=== PATIENT | female | born 1955 | race Caucasian/White ===

== ENCOUNTER 2021-01-14 12:19 | Emergency (ER) | payer OTHER, MEDICARE, SELFPAY ==
--- NOTE | ~2021-01-14 | CT_ITS ---
EXAMINATION: CT cervical spine wo con DATE: 01/14/2021 14:16 INDICATION: Neck pain post fall with head injury. TECHNIQUE: Computed tomography (CT) of the cervical spine was performed without intravenous contrast. Automated exposure control and iterative reconstruction technique were employed. The dose-length pro duct was 426.47 mGy-cm. COMPARISON: None FINDINGS: Straightening of the normal cervical lordosis. 1-2 mm retrolisthesis C4 on C5. Vertebral body heights are normal. No fracture. Severe disc height loss at C4-C5. Moderate disc height loss at C5-C6. Mild disc height loss at C2-C3 and C3-C4. Visualized cervical soft tissues and upper lungs are unremarkabl e. The following disc levels are specifically discussed: C2-C3: The disc does not extend beyond the endplate margin. There is mild left and moderate right unc overtebral joint osteoarthritis. There is no facet joint osteoarthritis. There is no neural foraminal stenosis. There is no central canal stenosis. C3-C4: Disc is mildly bulging. There is mild right and moderate left uncovertebral joint osteoarthrit is. There is mild right and moderate left facet joint osteoarthritis. There is no neural foraminal st enosis. There is no central canal stenosis. C4-C5: Posterior disc osteophyte complex is present. There is moderate left and severe right uncovert ebral joint osteoarthritis. There is mild bilateral facet joint osteoarthritis. There is mild left an d moderate right neural foraminal stenosis. There is mild central canal stenosis. C5-C6: Disc is bulging. There is severe right and moderate to severe left uncovertebral joint osteoar thritis. There is mild bilateral facet joint osteoarthritis. There is mild bilateral neural foraminal stenosis. There is mild central canal stenosis. C6-C7: The disc does not extend beyond the endplate margin. There is no uncovertebral joint osteoarth ritis. There is mild bilateral facet joint osteoarthritis. There is no neural foraminal stenosis. The re is no central canal stenosis. C7-T1: The disc does not extend beyond the endplate margin. There is no uncovertebral joint osteoarth ritis. There is mild to moderate left and severe right facet joint osteoarthritis. There is no neural foraminal stenosis. There is no central canal stenosis. IMPRESSION: 1. Moderate cervical spondylosis. No acute osseous abnormality. Reviewed, dictated and finalized at location [facility].
--- NOTE | ~2021-01-14 | CT_ITS ---
EXAMINATION: CT brain wo con DATE: 01/14/2021 14:17 INDICATION: A metal trellis fell on patient's head. Posterior head laceration. TECHNIQUE: Computed tomography (CT) of the head was performed without intravenous contrast. The mA wa s adjusted according to patient size. Iterative reconstruction technique was employed. Exam dose: 52 9.67 mGy-cm total exam DLP. COMPARISON: None FINDINGS: No intracranial mass lesion or hemorrhage or cerebrovascular accident is evident. No midlin e shift or mass effect. No subdural or epidural hematoma. Normal ventricular size. No skull fracture or significant abnormal bone destruction. Included paranasal sinuses and mastoid ai r cells are normally aerated. IMPRESSION: Negative Reviewed, dictated and finalized at [facility]. Reviewed, dictated and finalized at [facility]. IMPRESSION: Negative
[2021-01-14 12:25] VITALS: BP 143/110; PULSE 66; RESP 18; TEMP 35.8; O2SAT 98
--- NOTE | 2021-01-14 14:07 | ED.GENADULT ---
HPI - General Adult General Chief complaint: Head Injury <Abdirizak Patricia PA-C - Last Filed: 01/14/21 15:30> Stated complaint: head injury <Abdirizak Patricia PA-C - Last Filed: 01/14/21 15:30> Time Seen by Provider: 01/14/21 14:01 <Abdirizak Patricia PA-C - Last Filed: 01/14/21 15:30> Source: patient <Abdirizak Patricia PA-C - Last Filed: 01/14/21 15:30> Mode of arrival: ambulatory <Abdirizak Patricia PA-C - Last Filed: 01/14/21 15:30> Limitations: no limitations <Abdirizak Patricia PA-C - Last Filed: 01/14/21 15:30> History of Present Illness HPI narrative: Patient is 65-year-old female who presents to emergency department for evaluation of head injury and scalp laceration that occurred just prior to arrival patient was standing when she had a piece of metal scaffolding striking the posterior head denies loss of consciousness but notes that she does have severe headache lightheadedness dizziness. Patient notes his symptoms are worse with lifting the head up notes mild neck discomfort denies other pain or injuries or anticoagulant use. Patient has not taken anything for symptom <Abdirizak Patricia PA-C - Last Filed: 01/14/21 15:30> Related Data Allergies/adverse reactions: Allergies Allergy/AdvReac Type Severity Reaction Status Date / Time Penicillins Allergy Unknown Verified 01/14/21 12:28 <Abdirizak Patricia PA-C - Last Filed: 01/14/21 15:30> Review of Systems Review of Systems: All systems reviewed & are unremarkable except as noted in HPI and below <Abdirizak Patricia PA-C - Last Filed: 01/14/21 15:30> PMFSH Social History Social History: Social History Gender identity (if verbalized by the patient): Female <Abdirizak Patricia PA-C - Last Filed: 01/14/21 15:30> Exam Narrative: Exam Narrative: GENERAL: Well-appearing, well-nourished, and in no acute distress. HEAD: Normocephalic, 1 cm superficial linear posterior scalp laceration EYES: PERRLA and EOMI. ENT: Nares clear, no rhinorrhea or epistaxis. Mucous membranes moist. NECK: Supple. No adenopathy or masses. CHEST: Clear to auscultation. No respiratory distress. No wheezes rales or rhonchi HEART: Regular rate and rhythm. No murmur heard. EXTREMITIES: Normal range of motion. No edema. Paraspinal cervical tenderness no midline thoracic or lumbar tenderness SKIN: Warm, dry, no rash. NEURO: No focal deficits. Alert and oriented x3. Cranial nerves II through XII grossly intact. Normal speech and gait PSYCH: Normal mood and affect. <Abdirizak Patricia PA-C - Last Filed: 01/14/21 15:30> Course Vital Signs Vital signs: Vital Signs Temperature 96.4 F L 01/14/21 12:25 Pulse Rate 66 01/14/21 12:25 Respiratory Rate 18 01/14/21 12:25 Blood Pressure 143/110 H 01/14/21 12:25 Pulse Oximetry 98 01/14/21 12:25 Temperature 96.4 F L 01/14/21 12:25 Pulse Rate 58 L 01/14/21 15:47 Respiratory Rate 12 01/14/21 15:47 Blood Pressure 146/80 H 01/14/21 15:47 Pulse Oximetry 99 01/14/21 15:47 <Abdirizak Patricia PA-C - Last Filed: 01/14/21 15:30> Vital Signs Temperature 96.4 F L 01/14/21 12:25 Pulse Rate 66 01/14/21 12:25 Respiratory Rate 18 01/14/21 12:25 Blood Pressure 143/110 H 01/14/21 12:25 Pulse Oximetry 98 01/14/21 12:25 Temperature 96.4 F L 01/14/21 12:25 Pulse Rate 58 L 01/14/21 15:47 Respiratory Rate 12 01/14/21 15:47 Blood Pressure 146/80 H 01/14/21 15:47 Pulse Oximetry 99 01/14/21 15:47 <Chantal Magana MD - Last Filed: 01/14/21 18:16> Procedures Laceration Laceration 1: Date: 01/14/21 <MAGALY Berman Last Filed: 01/14/21 15:30> Time: 15:29 <MAGALY Berman Last Filed: 01/14/21 15:30> Site: scalp <MAGALY Berman Last Filed: 01/14/21 15:30> Size (cm): 1.5 <MAGALY Berman F
[2021-01-14] MEDS: ACETAMINOPHEN 325 MG TABLET 650 MG PO (14:55)
[2021-01-14] MEDS: LIDOCAINE, EPINEPHRINE, TETRACAINE VISCOUS SOLN 3 ML TOPICAL (14:55)
[2021-01-14] MEDS: TETANUS,DIPHTHERIA,AC PERTUSSIS ADULT (0.5 ML) BOOSTRIX IM (15:40)
[2021-01-14 15:47] VITALS: BP 146/80; PULSE 58; RESP 12; O2SAT 99
== END 2021-01-14 15:50 | disposition home or self-care (01) ==
PROVIDERS: Emergency Provider General Practice; PCP Family Medicine
DX: S01.01XA Laceration without foreign body of scalp, initial encounter (principal); Z23 Encounter for immunization; W20.8XXA Other cause of strike by thrown, projected or falling object, initial encounter
CPT/HCPCS: 12001; 70450; 72125; 90471; 90715; 99284; A9270

== ENCOUNTER 2022-08-28 11:05 | Emergency (ER) | payer OTHER, MEDICARE, SELFPAY ==
[2022-08-28 11:30] VITALS: BP 131/79; PULSE 67; RESP 18; TEMP 36.7; O2SAT 98
--- NOTE | 2022-08-28 11:55 | ED.URI ---
HPI - URI/Sore Throat General Chief Complaint: Upper Respiratory Infection Stated Complaint: . Time Seen by Provider: 08/28/22 11:55 Source: patient, RN notes reviewed and old records reviewed Mode of arrival: ambulatory Limitations: no limitations History of Present Illness HPI Narrative: 67-year-old female presents to the [facility] with complaints of cough and runny nose The since Thursday, 3 days. has taken NyQuil at night. denies fevers, chest pain, abdominal pain. MD elicited complaint: cough and rhinorrhea Related Data Home Medications Medication Instructions Recorded Confirmed No Home Medications 08/28/22 08/28/22 Allergies Allergy/AdvReac Type Severity Reaction Status Date / Time Penicillins Allergy Swelling Verified 08/28/22 11:46 Review of Systems Review of Systems: All systems reviewed & are unremarkable except as noted in HPI and below Constitutional: Constitutional: Reports no additional constitutional complaints, Denies chills and Denies fever(s) Eyes: Eyes: Reports no additional eye complaints ENT: Reports as per HPI, Reports nasal congestion, Reports nasal discharge and Reports post nasal drip Cardiovascular: Cardiovascular: Reports no additional cardiovascular complaints Respiratory: Respiratory: Reports no additional respiratory complaints Gastrointestinal: Gastrointestinal: Reports no additional gastrointestinal complaints Musculoskeletal: Musculoskeletal: Reports no additional musculoskeletal complaints Integumentary/Breasts: Skin/Breast: Reports system reviewed and no additional complaints, except as docu Neurologic: Reports system reviewed and no additional complaints, except as documented Psychiatric: Psychiatric: Reports no additional psychiatric complaints Allergic/Immunologic: Allergic/Immunologic: Reports no additional allergic/immunologic complaints PMFSH Social History Social History Gender identity (if verbalized by the patient): Female Comments At the time of my signature, I reviewed and agree with the nursing past medical, surgical, social, and family history. There is no relevant family history pertinent to the patient complaint. Exam Const: General: healthy appearing, no acute distress, alert and well nourished Nutritional Appearance: well nourished Orientation/consciousness: patient oriented x3 Limitations: no limitations HENMT: Head: normal to inspection Ears: external ears normal and TM abnormal bulging bilateral, with fluid behind the TM bilateral and scarred on the right; not erythematous, with no loss of landmarks, not perforated and not retracted Face/Nose/Sinus: Normal external nose present and Nasal discharge present clear bilateral Mouth: Yes Normal oral and palatal mucosa present, Yes lip normal and Yes moist mucous membranes Throat: posterior oropharynx normal, uvula midline and postnasal drainage Eyes: General: appearance normal, both eyes and all related structures Conjunctivae: conjunctivae normal Pupils: Equal, round and reactive pupils present Neck: Neck: normal visual inspection, no lymphadenopathy and no meningeal signs Chest: Chest palpation & inspection: normal inspection of the chest Resp: Effort & Inspection: normal respiratory effort and no use of accessory muscles Auscultation: clear to auscultation bilaterally, no crackles, no rales, no rhonchi and no wheezes Cardio: Rate: regular rate Rhythm: regular rhythm Skin: General skin exam: normal color Rashes: no rashes Wounds: no wounds Neuro: General: patient oriented x3, moves all extremities, no meningeal signs and no focal motor deficits Cranial nerves: Yes Equal, round and reactive pupils present Speech: normal speech Gait exam (Neuro): Normal gait present Extrem: General: normal to inspection, full ROM and capillary refill normal Psych: Appearance: grossly normal and well kempt Mental Status: mental status jana
== END 2022-08-28 12:12 | disposition home or self-care (01) ==
PROVIDERS: Emergency Provider Nurse Practitioner
DX: J06.9 Acute upper respiratory infection, unspecified (principal); H65.03 Acute serous otitis media, bilateral; Z20.822 Contact with and (suspected) exposure to COVID-19
CPT/HCPCS: 87081; 87426; 87804; 87880; 99213; C9803; G0463

== ENCOUNTER 2023-04-22 03:51 | Emergency (ER) | payer OTHER, MEDICARE, SELFPAY ==
[2023-04-22] VITALS (27 sets, daily range): BP systolic 128–152; BP diastolic 61–79; PULSE 58–76; RESP 12–19; TEMP 36.8; O2SAT 97–100
--- NOTE | ~2023-04-22 | CT_ITS ---
CT ANGIOGRAM NECK History: Neck pain. Technique: Serial spiral axial images through the neck were obtained during arterial phase IV injecti on of 100 cc of Omnipaque 350. 3-D postprocessing and MIP images were then reconstructed on the [employer] workstation. Dose reduction technique was used on this scan by utilizing automated exposure control and iterative reconstruction technique. The dose-length product (DLP) was 932.72 mGy-cm. CTA neck findings: Bilateral vertebral arteries are patent. Bilateral common carotid, internal carot id, and external carotid arteries are patent. No large vessel occlusion. No stenosis or aneurysm. The proximal right internal carotid artery demonstrates 0% stenosis relative to the normal distal artery lumen diameter. The proximal left internal carotid artery demonstrates 0% stenosis relative to the n ormal distal artery lumen diameter. No abnormal mass lesion or soft tissue abnormality evident in the neck. Thyroid gland unremarkable. P arapharyngeal fat preserved bilaterally. Parotid and submandibular glands are unremarkable. Impression: No significant abnormality seen. Reviewed, dictated and finalized at location . Impression: No significant abnormality seen.
--- NOTE | ~2023-04-22 | CT_ITS ---
Clinical Indication: Chest pain radiating to back CT Scan of the Chest and Abdomen with Contrast: Technique: Contiguous sections were acquired throughout the chest and abdomen after intravenous admin istration of 100 cc of Omnipaque 350. Dose reduction technique was used on this scan by utilizing au tomated exposure control and iterative reconstruction technique. The dose-length product (DLP) was 93 2.72 mGy-cm. Findings: There is no evidence of any significant mediastinal, hilar or axillary lymphadenopathy. The mediastin al soft tissues appear normal. No aortic aneurysm or dissection. No pulmonary embolus identified. There is no evidence of pleural or pericardial effusion. The lungs are clear. No pulmonary nodules or infiltrates are noted. The liver, spleen, pancreas, adrenals and kidneys are within normal limits. Cholecystectomy clips are present. No evidence of aortic aneurysm. No lymphadenopathy. Visualized bowel loops are unremarkable. No ascites. Impression: No significant abnormalities seen. No aortic aneurysm or dissection. Reviewed, dictated and finalized at [facility]. Impression: No significant abnormalities seen. No aortic aneurysm or dissection.
--- NOTE | 2023-04-22 03:58 | ECG_ITS ---
Measurements Intervals [place] Rate: 58 P: 61 ND: 152 QRS: 47 QRSD: 89 T: 50 QT: 437 QTc: 433 Interpretive Statements SINUS BRADYCARDIA POSSIBLE LEFT ATRIAL ENLARGEMENT [-0.1mV P WAVE IN V1/V2] LOW QRS VOLTAGE IN PRECORDIAL LEADS [QRS DEFLECTION < 1.0 mV IN CHEST LEADS] ABNORMAL ECG NO PREVIOUS ECG AVAILABLE FOR COMPARISON Electronically Signed On 04-22-2023 11:58:07 CDT by Arsalan Barbosa M.D.
--- NOTE | 2023-04-22 04:31 | ED.CHESTPAIN ---
HPI - Chest Pain General Chief Complaint: Chest Pain Stated Complaint: chest pain Time Seen by Provider: 04/22/23 03:57 History of Present Illness HPI narrative: Patient had recently been started on doxycycline, she had taken a pill and had a feeling of it being stuck in her throat, she was able to drink water afterwards, she then started having severe pain in her epigastric abdomen that seem to go to her back. Much worse when she lays flat. No focal numbness or weakness or chest pain. No shortness of breath. Related Data Allergies Allergy/AdvReac Type Severity Reaction Status Date / Time Penicillins Allergy Swelling Verified 08/28/22 11:46 Review of Systems Review of Systems: CONST: No fever. HEENT: Globus sensation C/V: No chest pain RESP: No cough GI: Reports abdominal pain : No dysuria. M/S: No joint pain. SKIN: No rash. NEURO: [No headache or focal numbness or weakness] PSYCH: [No depression] [facility] Social History Social History Gender identity (if verbalized by the patient): Female Exam Narrative: EXAMINATION OF ORGAN SYSTEMS/BODY AREAS: Constitutional: Vital signs per nursing GENERAL: Appears somewhat uncomfortable, sitting bolt upright HEAD: Normal with no signs of head trauma. EYES: EOMI, conjunctiva normal ENT: Clear pharynx, normal voice, no trismus LUNGS: Nonlabored breathing. HEART: [Regular rate and rhythm], normal radial and DP pulses bilaterally ABD: [Soft], mildly tender to palpation epigastric abdomen EXT: Normal range of motion SKIN: [No rashes or lesions.] NEURO: [Alert and oriented x 3. No gross focal sensory or strength deficits.] PSYCH: Normal affect Course Vital Signs Vital signs: Vital Signs Pulse Rate 71 04/22/23 04:39 Respiratory Rate 16 04/22/23 04:39 Pulse Oximetry 100 04/22/23 04:39 Temperature 36.8 C 04/22/23 04:40 Pulse Rate 71 04/22/23 07:01 Respiratory Rate 19 04/22/23 07:01 Blood Pressure 138/73 04/22/23 07:01 Pulse Oximetry 99 04/22/23 06:45 Oxygen Delivery Room Air 04/22/23 04:40 MDM - Chest Pain MDM Narrative Medical decision making narrative: ED COURSE AND MEDICAL DECISION MAKIN-year-old female presenting with chest pain and sensation of something in her throat, she thinks it started after started taking doxycycline, worse with laying flat, seems to radiate to her back. I suspect possibly pill esophagitis, gastritis/GERD, also considered ACS, EKG done in triage negative for acute ischemic changes. Cardiac workup is initiated. EKG: Performed in triage and interpreted by me. Normal sinus rhythm. Rate 58. Normal axis. CA normal. QRS duration normal. QTc normal. No pathologic Q waves. No ST segment elevation or depression to suggest acute ischemia. No RV strain pattern. HEART score is 0 with no acute ischemic changes on EKG and negative troponin making ACS unlikely. Wells low risk with negative PERC making PE unlikely. Presentation not consistent with dissection or aneurysm without radiation of pain or pulse deficits. CXR negative for mediastinal widening. No abdominal pain or signs of sepsis that would be concerning for esophageal perforation or mediastinitis. No cardiomegaly or JVD to suggest pericardial effusion/tamponade. On reevaluation, patient states that she does not feel any better after the additional dose of Protonix and famotidine, and in fact feels like the pain is going up her left neck. Given this, I will obtain a CTA of the neck, chest, abdomen to rule out dissection. Per radiology interpretation, no signs of dissection or any obvious abnormality or foreign body. Since it has been less than 3 hours since her onset of symptoms, I will repeat troponins. Discussed with patient, she thinks that she may have an issue with the doxycycline as she had no symptoms prior to taking this, she would like an alternative to this, since she was taking it for a
[2023-04-22] MEDS: PANTOPRAZOLE SODIUM IV 40 MG VIAL IV PUSH (04:48)
[2023-04-22] MEDS: FAMOTIDINE 20 MG/2 ML VIAL IV PUSH (04:48)
[2023-04-22 04:56] LABS: Basophils Absolute Auto 0.1 K/mm3 (0.0-0.1); Basophils Percent Auto 0.7 % (0.2-1.2); Eosinophils Absolute Auto 0.1 K/mm3 (0-0.3); Eosinophils Percent Auto 0.9 % (0-4.4); Hematocrit 44.6 % (37.0-47.0); Hemoglobin 15.2 g/dL (12.0-15.0); Immature Granulocyte Absolute 0.02 K/mm3 (0.00-0.031); Immature Granulocyte Percent A 0.3 % (0-0.5); Immature Platelet Fraction Pct 2.2 % (0.9-11.2); Lymphocytes Absolute Auto 1.49 K/mm3 (0.9-3.2); Lymphocytes Percent Auto 20.1 % (18.3-44.2); Mean Corpuscular HGB Conc 34.1 g/dl (32-36); Mean Corpuscular Hemoglobin 31.5 pg (26-34); Mean Corpuscular Volume 92.3 fl (80-100); Mean Platelet Volume 9.3 fl (7.4-10.4); Monocytes Absolute Auto 0.6 K/mm3 (0.1-0.6); Monocytes Percent Auto 7.5 % (2.6-8.5); Neutrophils Absolute Auto 5.2 K/mm3 (1.3-6.7); Neutrophils Percent Auto 70.5 % (45.5-73.1); Platelet Count Result 261 k/mm3 (150-375); Red Blood Count 4.83 M/mm3 (4.2-5.4); Red Cell Distribution Width 12.7 % (11.5-14.5); White Blood Count 7.4 K/mm3 (4.5-10.0)
[2023-04-22 05:11] LABS: Alanine Aminotransferase 22 U/L (6-35); Albumin Level 4.4 g/dL (3.5-5.1); Alkaline Phosphatase 88 U/L (38-126); Anion Gap 5 mmol/L (8-16); Aspartate Amino Transferase 35 U/L (14-36); Bilirubin,Total 0.6 mg/dL (0.2-1.3); Blood Urea Nitrogen 23 mg/dL (7-17); Calcium 9.6 mg/dL (8.4-10.2); Carbon Dioxide 29 mmol/L (22-30); Chloride 103 mmol/L (98-107); Estimated CRCL calculation 49 ml/min; Estimated Glomerular Filt Rate > 60; Glucose 109 mg/dL (65-110); Lipase 63 U/L (23-300); Potassium 3.6 mmol/L (3.4-5.0); Sodium 137 mmol/L (137-145)
[2023-04-22 05:16] LABS: Troponin I < 0.012 ng/mL (0.000-0.034)
[2023-04-22] MEDS: MORPHINE SULFATE (*CRX) 4 MG/ML INJ IV PUSH (05:47)
[2023-04-22] MEDS: ONDANSETRON INJ 4 MG/2 ML VIAL IV PUSH (07:25)
[2023-04-22 07:50] LABS: Troponin I < 0.012 ng/mL (0.000-0.034)
== END 2023-04-22 08:36 | disposition home or self-care (01) ==
PROVIDERS: Emergency Medicine; Emergency Provider Emergency Medicine
DX: R07.9 Chest pain, unspecified (principal)
CPT/HCPCS: 36415; 70498; 71275; 74175; 80053; 83690; 84484; 85025; 85055; 93005; 96374; 96375; 99284; C9113; J2270; J2405; Q9967

== ENCOUNTER 2024-10-28 14:19 | Emergency (ER) | payer MEDICARE, OTHER, SELFPAY ==
--- NOTE | 2024-10-28 14:21 | ED_ITS ---
HPI - URI/Sore Throat General Chief Complaint: Upper Respiratory Infection Stated Complaint: possible URI Time Seen by Provider: 10/28/24 14:21 Source: patient Mode of arrival: ambulatory Limitations: no limitations History of Present Illness HPI Narrative: Bernie is a 69-year-old female patient presenting to the clinic today with complaints of nasal congestion, productive cough, and sneezing x5 days. Denies any fevers, chills, or body aches. Does report feeling as though she has slight tightness in her chest when she is walking the dog today. Denies any chest pain or shortness of breath currently. MD elicited complaint: cough and nasal congestion Related Data Allergies Allergy/AdvReac Type Severity Reaction Status Date / Time doxycycline Allergy Anaphylactic Verified 10/28/24 14:33 Shock Penicillins Allergy Swelling Verified 10/28/24 14:33 Review of Systems Review of Systems: Pertinent positives per HPI. Patient denies any fever, chills, rash, headache, visual changes, dizziness, shortness of breath, chest pain, palpitations, nausea, vomiting, diarrhea, constipation, abdominal pain, or any urinary issues. PMFSH Social History Social History Gender identity (if verbalized by the patient): Female Comments At the time of my signature, I reviewed and agree with the nursing past medical, surgical, social, and family history. There is no relevant family history pertinent to the patient complaint. Exam Narrative: General: Well-developed, well nourished, in no apparent distress Head: Normocephalic, atraumatic Eyes: Pupils equally round and reactive to light bilaterally, EOM intact, sclera and conjunctive clear, no discharge, lids normal Ears: TMs intact and clear, ear canals clear, no drainage, grossly hearing normal. Nose: Nares patent, clear nasal discharge, mild inflammation, no sinus tenderness. Mouth: Oral pharynx without lesions or masses, good dentition, MMM. Postnasal drip Neck: Supple, trachea midline, no enlargement of anterior or posterior cervical nodes, no thyroid masses or goiter palpable. Cardio: Regular rate and rhythm, s1 and s2 normal, no murmur appreciated. Resp: Clear to auscultation bilaterally, no rhonchi, rales, wheezing or rubs Course Course Emergency Course: Portions of this record may have been created with voice recognition software. Level of Care: Express Care Visit Vital Signs Vital signs: Vital Signs Temperature 36.3 C L 10/28/24 14:29 Pulse Rate 63 10/28/24 14:29 Respiratory Rate 16 10/28/24 14:29 Blood Pressure 142/65 H 10/28/24 14:29 Pulse Oximetry 98 10/28/24 14:29 Oxygen Delivery Room Air 10/28/24 14:29 Temperature 36.3 C L 10/28/24 14:29 Pulse Rate 63 10/28/24 14:29 Respiratory Rate 16 10/28/24 14:29 Blood Pressure 142/65 H 10/28/24 14:29 Pulse Oximetry 98 10/28/24 14:29 Oxygen Delivery Room Air 10/28/24 14:29 Vital signs reviewed MDM - URI/Sore Throat MDM Narrative Medical decision making narrative: At the time of visit patient is resting comfortably on the exam table. Patient appears to be nontoxic. Plan: Lung sounds are clear in the clinic today, she is satting 98%, and is not in any respiratory distress. I suspect patient has URI with cough and congestion. Prescription for albuterol inhaler and prednisone was sent to the pharmacy. Supportive measures were discussed with the patient and they voiced understanding discharge instructions and agrees to treatment plan. Return precautions reviewed Differential Diagnosis Differential diagnosis: Likely upper respiratory infection, otitis media, sinusitis, viral infection, bronchitis, influenza, pharyngitis and other (COVID) Discharge Plan Discharge Clinical Impression: Upper respiratory infection Qualifiers: URI type: unspecified URI Qualified Code(s): J06.9 - Acute upper respiratory infection, unspecified Patient Disposition: Home, Self-Care Condition: Stable Instructions: Antibiotic Form, Cold Symptoms (ED) Additional Instructions: Take prescription medications only as prescribed-albuterol inhaler and prednisone Increase fluids and stay well hydrated Tylenol/motrin for pain/fever Flonase and OTC antihistamines as directed Vicks vapor rub to open sinuses Sinus rinses for congestion Cepacol spray, cough drops, throat lozenges, warm tea with honey/lemon, gargle salt water to soothe throat BRAT diet for diarrhea Clear liquids x 24 hours then advance as tolerated for nausea/vomiting Go to the ED if you develop a worsening in your condition- high fever not controlled by Tylenol or Motrin, dehydration, weakness, lethargy, shortness of breath, or chest pain. Follow up with your PCP in 3-5 days if symptoms persist. Patient Language: Romansh Prescriptions: New prednisone 20 mg tablet 40 mg PO DAILY 5 Days Qty: 10 0RF albuterol sulfate 90 mcg/actuation HFA aerosol inhaler 2 puff inhalation Q4-6H PRN (Reason: shortness of breath or wheezing) 30 Days Qty: 8.5 0RF Follow-up/Referrals: UNKNOWN,DOCTOR [Primary Care Provider] - Time of Disposition: 14:39 Quality NIHSS Nursing Documentation ED NIHSS nursing documentation: reviewed/agree
[2024-10-28 14:29] VITALS: BP 142/65; PULSE 63; RESP 16; TEMP 36.3; O2SAT 98
== END 2024-10-28 14:43 | disposition home or self-care (01) ==
PROVIDERS: Emergency Provider Nurse Practitioner Family
DX: J06.9 Acute upper respiratory infection, unspecified (principal)
CPT/HCPCS: 99213; G0463

== ENCOUNTER 2025-09-18 16:30 | Emergency (ER) | payer MEDICARE, OTHER, SELFPAY ==
[2025-09-18 16:41] VITALS: BP 158/68; PULSE 56; RESP 20; TEMP 35.6; O2SAT 100
--- NOTE | 2025-09-18 17:08 | ED_ITS ---
HPI - URI/Sore Throat General Chief Complaint: Upper Respiratory Infection Stated Complaint: URI Time Seen by Provider: 09/18/25 16:57 Source: patient and RN notes reviewed Mode of arrival: ambulatory Limitations: no limitations History of Present Illness HPI Narrative: 70-year-old female patient presents today with a 4 day history of productive cough. Patient blew her nose 3 days ago and felt a large pop in her right ear and has had muffled hearing ever since. Denies drainage or blood from the ear. Denies shortness of breath or fever. She did fly home from out of town prior to her ear symptoms. She has been taking NyQuil without much improvement. Related Data Allergies Allergy/AdvReac Type Severity Reaction Status Date / Time doxycycline Allergy Anaphylactic Verified 10/28/24 14:33 Shock Penicillins Allergy Swelling Verified 10/28/24 14:33 PMFSH Social History Social History Gender identity (if verbalized by the patient): Female Comments At time of signature, I have reviewed and agree with nursing past medical, surgical, social and family history unless otherwise noted. Please see nursing chart for further information. There is no relevant family history pertinent to the presenting complaint Exam Narrative: GENERAL: Well-appearing, well-nourished, and in no acute distress. HEAD: Normocephalic, atraumatic. EYES: EOMI. No redness or drainage. Conjunctivae normal. ENT: Mucous membranes pink and moist. Nares congested. No rhinorrhea. Left TM normal. Right TM injected with effusion, without obvious rupture. Throat normal. Uvula midline. NECK: Normal AROM. Supple. No lymphadenopathy. CHEST: No respiratory distress. Clear to auscultation. HEART: Regular rate and rhythm. No murmur appreciated. EXTREMITIES: Normal range of motion. No edema. SKIN: Warm, dry, no rash. Capillary refill normal. Normal skin turgor. NEURO: No focal deficits. Alert and oriented x3. Gait steady. PSYCH: Normal affect. No signs of depression or anxiety. Course Course Level of Care: Express Care Visit Vital Signs Vital signs: Vital Signs Temperature 96.1 F L 09/18/25 16:41 Pulse Rate 56 L 09/18/25 16:41 Respiratory Rate 20 09/18/25 16:41 Blood Pressure 158/68 H 09/18/25 16:41 Pulse Oximetry 100 09/18/25 16:41 Oxygen Delivery Room Air 09/18/25 16:41 Temperature 96.1 F L 09/18/25 16:41 Pulse Rate 56 L 09/18/25 16:41 Respiratory Rate 20 09/18/25 16:41 Blood Pressure 158/68 H 09/18/25 16:41 Pulse Oximetry 100 09/18/25 16:41 Oxygen Delivery Room Air 09/18/25 16:41 Reviewed MDM - URI/Sore Throat MDM Narrative Medical decision making narrative: 70-year-old female patient presents today with a 4 day history of productive cou gh. Patient blew her nose 3 days ago and felt a large pop in her right ear and has had muffled hearing ever since. Denies drainage or blood from the ear. Denies shortness of breath or fever. She did fly home from out of town prior to her ear symptoms. She has been taking NyQuil without much improvement. Upon exam, right TM is injected fusion, without obvious rupture. Patient will be treated with azithromycin for otitis media. Allergy to PCN with swelling. Allergy to Doxycycline. Lung auscultation normal, and likely viral in etiology. Discussed starting Flonase to help equalize the ear. Patient states previous use of Flonase caused severe dryness of the nose and throat. Recommend nasal saline instead. Patient agrees with plan. Vital signs stable. Anticipatory guidance given. Recommend following up with PCP in 1 week if ear symptoms have not improved. Differential Diagnosis Differential diagnosis: Likely upper respiratory infection, otitis media, sinusitis, viral infection, bronchitis and other (Otitis externa, ruptured TM, serous otitis) Critical Care Time Critical Care Time Critical Care Time: No Discharge Plan Discharge Clinical Impression: Acute right otitis media Upper respiratory infection Qualifiers: URI type: unspecified URI Qualified Code(s): J06.9 - Acute upper respiratory infection, unspecified Patient Disposition: Home Condition: Stable Instructions: Ear Infection (GEN) Additional Instructions: Please take the azithromycin as prescribed. You may continue vhyk-kab-cerjqvi medication as needed. Follow-up with your PCP in 1 week if symptoms in your ear have not improved. Patient Language: Botswanan Prescriptions: New azithromycin 500 mg tablet 500 mg PO DAILY 3 Days Qty: 3 0RF Follow-up/Referrals: Abundio Villatoro DO [Primary Care Provider, Internal Medicine] Time of Disposition: 17:15
--- OUTSIDE RECORDS SUMMARY | 2025-09-18 18:26 | XMS_ITS | Clinical Summary ---
Author Organization [facility] Address [address] [place] [id number] Care Team Providers Care Medical Review Specialist Name Role Phone Dg Helton MD Primary Care Provider +1- [phone] Allergies Active Allergy Reactions Criticality Noted Date Comments Penicillins Swelling Medium 11/21/2017 Medications No known medications Active Problems Problem Noted Date Diagnosed Date Degenerative disc disease, cervical 04/12/2019 Assessment & Plan (08/23/2019 10:45 AM CDT): Consider pain management if no significant improvement Assessment & Plan (04/12/2019 12:45 PM CDT): Continue with conservative treatment. If no significant improvement consider pain management for possible steroid injections. Numbness and tingling of right upper extremity 0 03/22/2019 Assessment & Plan (04/12/2019 12:45 PM CDT): Numbness and tingling is settling down and now only a 1.5 on a 10 scale. Will continue to monitor. Degenerative disc disease to the cervical spine with foraminal stenosis and spinal stenosis is apparent. Follow-up as needed. Assessment & Plan (03/22/2019 11:40 AM CDT): Pain with numbness and tingling to the right upper extremity. No history of significant neck pain. However, atypical mole was removed from her arm over the axillary nerve. Still having weakness to the right upper extremity. Would like to wait 2 more weeks before considering EMG NCV. Will obtain MRI of the cervical spine for further evaluation. Lateral epicondylitis of right elbow 02/18/2019 Assessment & Plan (08/23/2019 10:45 AM CDT): Repeat steroid injection today. Meloxicam 15 mg once daily. Formal physical therapy with modalities. Follow up in 4-6 weeks. Assessment & Plan (04/12/2019 12:44 PM CDT): Patient had a fair amount of relief from the injection. Continue with home exercises with stretching. Nonsteroidal anti-inflammatories as needed. Follow-up as needed. Assessment & Plan (03/22/2019 11:42 AM CDT): Continue home stretching exercise for physician directed exercises. Continue icing and bracing. Lateral epicondyle is injected today. Follow-up after MRI. Assessment & Plan (02/18/2019 9:21 AM CDT): We discussed the risks, benefits and alternatives. At this point in time with a history of the cubital tunnel I will avoid tennis elbow strap. However, I would recommend wrist splint to prevent the wrist from extending and aggravating elbow. She is on meloxicam 7.5 mg and will elevate that to 15 mg daily. Begin a Medrol Dosepak. No history of diabetes or glaucoma. Physician directed exercises are given. She can't continue her ice, TENs unit and Biofreeze. Follow up in 4 weeks for repeat evaluation. If no significant improvement may consider injection and formal physical therapy at that time. Cubital tunnel syndrome on right 02/18/2019 Assessment & Plan (03/22/2019 11:41 AM CDT): Symptoms are consistent with cubital tunnel however she also has scar over the axillary nerve from previous biopsy. Consider EMG NCV 6 weeks after her surgery. Assessment & Plan (02/18/2019 9:22 AM CDT): Numbness and tingling in the ulnar nerve distribution has only been present for approximately 1 month. Hopefully with the conservative treatment of the tennis elbow that will settle down with the Medrol Dosepak and meloxicam. Again, would avoid the tennis elbow strap as it may irritate the ulnar nerve. After 12 weeks if no significant improvement may consider EMG NCV. History of atypical skin mole 02/18/2019 Assessment & Plan (03/22/2019 11:41 AM CDT): Again, over the axillary nerve. EMG NCV at 6 weeks from surgery. Will obtain MRI cervical spine for further evaluation of the numbness and tingling as well as weakness to the right upper extremity. Assessment & Plan (02/18/2019 9:23 AM CDT): Mole excision yesterday is up on the lateral aspect of the right shoulder. The incision is centered over the axillary nerve. However, she has no numbness and tingling and has good deltoid function. Surgical History Surgery Date Site/Laterality Comments HYSTERECTOMY 10/26/1979 - 10/25/1980 BLADDER SURGERY frontal and posterior Medical History Medical History Date Comments Known health problems: none Hypercholesteremia Family History Medical History Relation Name Comments Cancer Other Stroke Other Gout Son Relation Name Status Comments Father Alive Mother Alive Other Son Social History Tobacco Use Types Packs/Day Years Used Date Smoking Tobacco: Never Smokeless Tobacco: Never Alcohol Use Standard Drinks/Week Comments Yes 0 (1 standard drink = 0.6 oz pur e alcohol) socially Personal Safety Answer Date Recorded Getting School Help Needed Not on file 01/08 Comments Unknown Sex and Gender Information Value Date Recorded Sex Assigned at Not on file Legal Sex Female 11:50 AM RECHARGER Gender Identity Not on file Sexual Orientation Not on file 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 Advance Directives For more information, please contact: [phone] Documents on File Type Date Recorded Patient Floor Coverer Expl anation ADVANCE DIRECTIVE 08/02/2017 12:00 AM CAROL Singh OF [employer] SPECIALIST FINANCIAL/MEDICAL Care Teams Medical Review Specialist Relationship Specialty Start Date End Date Dg Helton MD [address] [place] [address] [place] [id number] PCP - General Family Medicine 02/14/19
--- OUTSIDE RECORDS SUMMARY | 2025-09-18 18:26 | XMS_ITS | Encounter Summary ---
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 us Historical Provider [facility] Final Result documented in this encounter Visit Diagnoses Not on filedocumented in this encounter Care Teams Literacy Specialist Relationship Specialty Start Date End Date Dg Helton MD [address] [place] [phone] PCP - General Family Medicine 02/14/19 documented as of this encounter
--- OUTSIDE RECORDS SUMMARY | 2025-09-18 18:26 | XMS_ITS | Clinical Summary ---
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 Gender Identity Not on file Sexual Orientation Not on file Plan of Treatment Health Maintenance Due Date Last Done Comments Hepatitis C Virus (HCV) Screening 1955 TdaP Immunization 1954 Cologuard 1999 Colonoscopy 1999 Colorectal Cancer Screening 1999 Immunochemical Fecal Occult Blood 1999 Pneumococcal Immunization (5 0+ years) (1 of 1 - PCV) 2004 Zoster Immunization (1 of 2) 2004 Influenza Immunization (#1) 2025 SARS-COV-2 Immunization ( - season) 2025 Respiratory Syncytial Virus (RSV) Immunization (Adult) (1 - 1-dose 75+ series) 2029 Hepatitis B Immunization Aged Out No longer eligible based on patient's age to complete this topic Human Papillomavirus (HPV) Immunization Aged Out No longer eligible b ased on patient's age to complete this topic Meningococcal Immunization (ACWY) Aged Out No longer eligible based on patient's age to complete this topic Rotavirus Immunization Aged Out No lo nger eligible based on patient's age to complete this topic Insurance [employer] on file
--- OUTSIDE RECORDS SUMMARY | 2025-09-18 18:26 | XMS_ITS | Encounter Summary ---
Author Organization [facility] Address [address] [place] [address] Care Team Providers Care Director Of Public Health Name Role Phone Carolyne James PA-C Primary Care Provider +1- [phone] Encounter Details Date Type Department Care Team (Late st Contact Info) Description 10/14/2019 Lab Requisition [facility] DermPath Lab [address] [facility], [place] [phone] Krissy Kurtz MD [address] [facility] 3 [place] [address] Social History Tobacco Use Types Packs/Day Years Used Date Smoking Tobacco: Never Assessed Comments Unknown Sex and Gender Information Value Date Recorded Sex Assigned at Not on file Legal Sex Female 6:49 PM COMPLIANCE AIDE Gender Identity Not on file Sexual Orientation Not on file documented as of this encounter Plan of Treatment Not on file documented as of this encounter Procedures Procedure Name Priority Date/Time Associated Diagnosis Comments DERMATOPATHOLOGY Routine 10/13/2019 12:0 0 AM COMPLIANCE AIDE documented in this encounter Results * DERMATOPATHOLOGY (10/13/2019 12:00 AM COMPLIANCE AIDE) Case Report Dermatopathology Report Case: [id number] Authorizing Provider: Krissy Kurtz MD Collected: 10/13/2019 12:00 AM Ordering Location: [facility] DermPath Lab Received: 10/14/2019 06:52 AM Pathologist: Temitope Ventura MD Specimen: Skin, left upper back 11:47 AM COMPLIANCE AIDE DERMATOPATHOLOGY LABORATORY Final Diagnosis Specimen A. 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 See prior biopsy [id number] 11:47 AM [facility] DERMATOPATHOLOGY LABORATORY Gross Description Specimen A: Received is one formalin filled container labeled with the patient's name and designated left upper back.The specimen consists of an ellipse measuring 08r15h3 mm and is oriented with the suture/notch at the 12 o'clock position not labeled on the requisition . The 12 to 6 o'clock margin is inked green. The 6 o'clock to 12 o'clock margin is inked black. The 12 o'clock tip is submitted in cassette 1. The 6 o'clock tip is submitted in cassette 2. The remainder of the ellipse is serially sectioned and submitted in cassettes 3 -7. Jar 0. 11:47 AM [facility] DERMATOPATHOLOGY LABORATORY Microscopic Description Specimen A. SKIN, left upper back: There are fibroblasts and collagen bundles oriented parallel to the skin surface. There are elongated blood vessels, some of which are oriented perpendicular to the skin surface. No residual melanoma is identified. 11:47 AM [facility] DERMATOPATHOLOGY LABORATORY Disclaimer An external and internal positive and negative controls are appropriate for the histochemical, immunohistochemical and immunofluorescence stain(s) in this case (if any), except where stated explicitly. The performance characteristics of the stain(s) cited in this report were developed and its performance characteristic determined by the Dermatopathology Laboratory at [facility], directed by Dr. Nola Dudley. These tests need not be, and therefore are not, approved by the [place] Food and Drug Administration. The tests are used for clinical purposes. Billing Codes Specimen Charges Stain Charges 67187 1 11:47 AM [facility] DERMATOPATHOLOGY LABORATORY Embedded Images 11:47 AM [facility] DERMATOPATHOLOGY LABORATORY Pathology/Cytolog y TISSUE SPECIMEN FROM SKIN / Unknown 10/13/2019 10/14/2019 6:52 AM [facility] us Krissy Kurtz MD LAB - PATHOLOGY/CYTOLOGY ORD ERABLES Final Result DERMATOPATHOLOGY LABORATORY [facility] - Department of Dermatology [address] [facility] 5th Floor Lab [address] [phone] documented in this encounter Visit Diagnoses Not on filedocumented in this encounter Care Teams Director Of Public Health Relationship Specialty Start Date End Date Carolyne James PA-C [address] [place] [phone] PCP - General Physician Medical Office Rep 07/12/23 documented as of this encounter
--- OUTSIDE RECORDS SUMMARY | 2025-09-18 18:26 | XMS_ITS | Encounter Summary ---
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 Historical Provider [facility] Final Result documented in this encounter Visit Diagnoses Not on filedocumented in this encounter Care Teams Starchmaker Relationship Specialty Start Date End Date Dg Helton MD [address] [place] [phone] PCP - General Family Medicine 02/14/19 documented as of this encounter
--- OUTSIDE RECORDS SUMMARY | 2025-09-18 18:26 | XMS_ITS | Encounter Summary ---
Author Organization [facility] Address [address] [place] [address] Care Team Providers Care Gun Tester Name Role Phone Carolyne James PA-C Primary Care Provider +1- [phone] Encounter Details Date Type Department Care Team (Late st Contact Info) Description 04/21/2024 Lab Requisition [facility] - DermPath Lab [address] [facility], [place] [phone] Krissy Kurtz MD [address] [facility] [address] [place] [address] Social History Tobacco Use Types Packs/Day Years Used Date Smoking Tobacco: Never Assessed Comments No Sex and Gender Information Value Date Recorded Sex Assigned at Not on file Legal Sex Female 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 Gender Identity Not on file Sexual Orientation Not on file documented as of this encounter Plan of Treatment Not on file documented as of this encounter Procedures Procedure Name Priority Date/Time Associated Diagnosis Comments DERMATOPATHOLOGY Routine 04/21/2024 8:37 AM CDT documented in this encounter Results * DERMATOPATHOLOGY (04/21/2024 8:37 AM CDT) Case Report Dermatopathology Report Case: [id number] Authorizing Provider: Krissy Kurtz MD Collected: 04/21/2024 08:37 AM Ordering Location: [facility] - Received: 04/22/2024 08:50 AM DermPath Lab Pathologist: Temitope Ventura MD Specimen: Skin, nose 1:21 PM CDT DERMATOPATHOLOGY LABORATORY Final Diagnosis Specimen A. SKIN, nose: ACTINIC KERATOSIS (L57.0) (see microscopic description and comment) 1:21 PM T DERMATOPATHOLOGY LABORATORY at 1321 CDT Clinical History [place] papule, [place] vs BCC 1:21 PM CDT DERMATOPATHOLOGY LABORATORY Gross Description Specimen A: Received is one formalin filled container labeled with the patient's name and designated nose. The specimen consists of a shave biopsy measuring 2x1x1 mm. Jar 0. 1:21 PM T DERMATOPATHOLOGY LABORATORY Microscopic Description Specimen A. SKIN, nose: There is focal parakeratosis. The lower half of the epidermis shows disorderly maturation of keratinocytes with nuclear pleomorphism. Additional deeper sections were obtained and reviewed. COMMENT: Given the superficial nature of the biopsy specimen, a deeper dermal process cannot be excluded. 1:21 PM CDT DERMATOPATHOLOGY LABORATORY Disclaimer An external and internal positive and negative controls are appropriate for the histochemical, immunohistochemical and immunofluorescence stain(s) in this case (if any), except where stated explicitly. The performance characteristics of the stain(s) cited in this report were developed and its performance characteristic determined by the Dermatopathology Laboratory at [facility], directed by Dr. Nola Dudley. These tests need not be, and therefore are not, approved by the [place] Food and Drug Administration. The tests are used for clinical purposes. Billing Codes Specimen Charges Stain Charges 54239 1 1:21 PM CDT DERMATOPATHOLOGY LABORATORY Embedded Images 1:21 PM CDT DERMATOPATHOLOGY LABORATORY Pathology/Cytolo gy TISSUE SPECIMEN FROM SKIN / Unknown 04/21/2024 8:37 AM CDT 04/22/2024 8:50 AM CDT us Krissy Kurtz MD LAB - PATHOLOGY/CYTOLOGY ORD ERABLES Final Result DERMATOPATHOLOGY LABORATORY [facility] - Department of Dermatology [address], [address] [phone] documented in this encounter Visit Diagnoses Not on filedocumented in this encounter Care Teams Gun Tester Relationship Specialty Start Date End Date Carolyne James PA-C [address] [place] [id number] PCP - General Physician Wood Tank Erector 07/12/23 documented as of this encounter
--- OUTSIDE RECORDS SUMMARY | 2025-09-18 18:26 | XMS_ITS | Encounter Summary ---
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 Historical Provider MD [facility] Final Result * CARDIOLOGY REPORT (07/23/2017 12:00 AM CDT) Anatomical Region Laterality Modality Other Narrative 07/23/2017 12:00 AM CDT Ordered by an unspecified provider. Historical Provider MD [facility] Final Result documented in this encounter Visit Diagnoses Not on filedocumented in this encounter Care Teams Mis Manager Relationship Specialty Start Date End Date Dg Helton MD [address] [place] [address] PCP - General Family Medicine 02/14/19 documented as of this encounter
--- OUTSIDE RECORDS SUMMARY | 2025-09-18 18:26 | XMS_ITS | Clinical Summary ---
Author Organization [facility] Address [address] [facility] [place] [address] Care Team Providers Care Director Of Sustainable Design Name Role Phone Carolyne James PA-C Primary Care Provider +1- [phone] Source Comments [facility],non-owned Affiliates and Associated Physician Practices is amultiple site organization consisting of ambulatory clinics and hospital sitesin [place] and [place]. This disclosure is being madepursuant to the Care Everywhere program and may not contain all information available regarding this patient. 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 Gender Identity Not on file Sexual Orientation Not on file Last Filed Vital Signs Vital Sign Reading Time Taken Comments Blood Pressure 126/72 07/12/2023 9:15 PM CDT Pulse 50 07/12/2023 9:15 PM CDT Temperature 36.6 C (97.9 F) 07/12/2023 7:09 PM CDT Respiratory Rate 12 07/12/2023 9:15 PM CDT Oxygen Saturation 95% 07/12/2023 9:15 PM CDT Inhaled Oxygen Concentration - - Weight 74.8 kg (165 lb) 07/12/2023 7:09 PM CDT Height 157.5 cm (5' 2) 07/12/2023 7:09 PM CDT Body Mass Index 30.18 07/12/2023 7:09 PM CDT Plan of Treatment Health Maintenance Due Date Last Done Comments COLOGUARD (AGES 45-75) - COLON CA SCREENING 1954 COLON MONITORING 1954 COLONOSCOPY - COLON CA SCREENING 1954 CT COLONOGRAPHY - COLON CA SCREENING 1954 Colorectal Cancer Screening 1954 FIT - COLON CA SCREENING 1954 FLEX SIG - COLON CA SCREENING 1954 MEDICARE AWV 12 MONTHS 1954 HEPATITIS C SCREENING 08/06/1972 DTAP/TDAP/TD VACCINES (1 - Tdap) 1973 PNEUMOCOCCAL VACCINE 50+ (1 of 1 - PCV) 2004 ZOSTER VACCINE (1 of 2) 2004 DEPRESSION SCREENING 10/26/2024 COVID-19 VACCINE (3 - season) 2025 08/23/2021, 08/02/2021 INFLUENZA VACCINE (#1) 2025 MAMMOGRAM 07/04/2027 07/04/2025, 07/0 05/2024, 03/13/2023, Additional history exists LIPID TESTING 06/17/2028 06/17/2023 Respiratory Syncytial Virus (RSV) Vaccine Pt: or over 60 yrs (1 - 1-dose 75+ series) 2029 BONE DENSITY TESTING Completed 04/07/2024, 01/02/2022, 09/24/2018 HEPATITIS B VACCINE Aged Out No longe r eligible based on patient's age to complete this topic HIB VACCINE Aged Out No longer eligi ble based on patient's age to complete this topic HPV VACCINE Aged Out No longer eligi ble based on patient's age to complete this topic MENINGOCOCCAL (Group B) VACCINE SHARED DECISION-MAKING Aged Out No longer eligible based on patient's age to complete this topic MENINGOCOCCAL GROUPS A/C/Y/W VACCINE Aged Out No longer eligible based on patient's age to complete this topic Insurance [employer] MEDICARE Care Teams Director Of Sustainable Design Relationship Specialty Start Date End Date Carolyne James PA-C [address] [place] [phone] PCP - General Physician Metal Fabricating Supervisor 07/12/23
--- OUTSIDE RECORDS SUMMARY | 2025-09-18 18:26 | XMS_ITS | Encounter Summary ---
Author Organization [facility] Address [address] [place] [address] Care Team Providers Care Film Editor Supervisor Name Role Phone Carolyne James PA-C Primary Care Provider +1- [phone] Encounter Details Date Type Department Care Team (Late st Contact Info) Description 06/19/2020 Lab Requisition [facility] DermPath Lab [address] [facility], [place] [phone] Krissy Kurtz MD [address] 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 Gender Identity Not on file Sexual Orientation Not on file documented as of this encounter Plan of Treatment Not on file documented as of this encounter Procedures Procedure Name Priority Date/Time Associated Diagnosis Comments DERMATOPATHOLOGY Routine 06/18/2020 12:0 0 AM CDT documented in this encounter Results * DERMATOPATHOLOGY (06/18/2020 12:00 AM CDT) Case Report Dermatopathology Report Case: [id number] Authorizing Provider: Krissy Kurtz MD Collected: 06/18/2020 12:00 AM Ordering Location: [facility] DermPath Lab Received: 06/19/2020 06:50 AM Pathologist: Temitope Ventura MD Specimen: Skin, right arm 0 1:49 PM CDT DERMATOPATHOLOGY LABORATORY Final Diagnosis Specimen A. SKIN, right arm: LENTIGINOUS MELANOCYTIC NEVUS, COMPOUND TYPE, IRRITATED (COMPOUND MELANOCYTIC NEVUS WITH ARCHITECTURAL DISORDER) (D22.61) 0 1:49 PM CDT DERMATOPATHOLOGY LABORATORY at 1349 CDT Clinical History Nevus R/O MM, brown papule. 0 1:49 PM CDT DERMATOPATHOLOGY LABORATORY Gross Description Specimen A: Received is one formalin filled container labeled with the patient's name and designated right arm. The specimen consists of a shave measuring [id number]. Jar 0. 0 1:49 PM CDT DERMATOPATHOLOGY LABORATORY Microscopic Description Specimen A. SKIN, right arm: This is a compound nevus. There is melanin pigment in the stratum corneum. There is architectural disorder characterized by a lentiginous proliferation of melanocytes between irregular nevus nests of cells along the dermal epidermal junction. There is underlying fibroplasia of the papillary dermis. The intradermal component is bland in appearance and matures with depth. (Compound Srinivasan's Nevus or Compound Dysplastic Nevus) 0 1:49 PM CDT DERMATOPATHOLOGY LABORATORY Disclaimer An external and internal positive and negative controls are appropriate for the histochemical, immunohistochemical and immunofluorescence stain(s) in this case (if any), except where stated explicitly. The performance characteristics of the stain(s) cited in this report were developed and its performance characteristic determined by the Dermatopathology Laboratory at [facility], directed by Dr. Nola Dudley. These tests need not be, and therefore are not, approved by the [place] Food and Drug Administration. The tests are used for clinical purposes. Billing Codes Specimen Charges Stain Charges 97456 1 0 1:49 PM CDT DERMATOPATHOLOGY LABORATORY Embedded Images 0 1:49 PM CDT DERMATOPATHOLOGY LABORATORY Pathology/Cytolog y TISSUE SPECIMEN FROM SKIN / Unknown 06/18/2020 06/19/2020 6:50 AM CDT us Krissy Kurtz MD LAB - PATHOLOGY/CYTOLOGY ORD ERABLES Final Result DERMATOPATHOLOGY LABORATORY [facility] - Department of Dermatology [facility] [address] [phone] documented in this encounter Visit Diagnoses Not on filedocumented in this encounter Care Teams Film Editor Supervisor Relationship Specialty Start Date End Date Carolyne James PA-C [address] [place] [phone] PCP - General Physician Export Administrator 07/12/23 documented as of this encounter
--- OUTSIDE RECORDS SUMMARY | 2025-09-18 18:26 | XMS_ITS | Encounter Summary ---
Author Organization [facility] Address [address] [place] [address] Care Team Providers Care Quality Management Nurse Name Role Phone Carolyne James PA-C Primary Care Provider +1- [phone] Encounter Details Date Type Department Care Team (Late st Contact Info) Description 09/14/[address] 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 DermPath Lab Received: 09/14/2019 01:17 PM Pathologist: Yue Dudley MD Specimen: Skin, left upper back 9 1:36 PM COATER SLATE DERMATOPATHOLOGY LABORATORY Final Diagnosis Specimen A. 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 Irr border, brown papule. 1:36 PM [facility] DERMATOPATHOLOGY LABORATORY Gross Description Specimen A: Received is one formalin filled container labeled with the patient's name and designated left upper back. The specimen consists of a shave measuring [id number]. Jar 0. 1:36 PM [facility] DERMATOPATHOLOGY LABORATORY Microscopic Description Specimen A. SKIN, left upper back: There is a proliferation of melanocytes distributed in an irregular pattern, singly and in nests, at all levels of the epidermis. This lesion is not present at the sampled margin of the specimen. 1:36 PM [facility] DERMATOPATHOLOGY LABORATORY Disclaimer An external and internal positive and negative controls are appropriate for the histochemical, immunohistochemical and immunofluorescence stain(s) in this case (if any), except where stated explicitly. The performance characteristics of the stain(s) cited in this report were developed and its performance characteristic determined by the Dermatopathology Laboratory at [facility], directed by Dr. Nola Dudley. These tests need not be, and therefore are not, approved by the [place] Food and Drug Administration. The tests are used for clinical purposes. Billing Codes Specimen Charges Stain Charges 10464 1 1:36 PM [facility] DERMATOPATHOLOGY LABORATORY Embedded Images 1:36 PM [facility] DERMATOPATHOLOGY LABORATORY Pathology/Cytolog y TISSUE SPECIMEN FROM SKIN / Unknown 09/14/2019 09/14/2019 1:17 PM [facility] us Krissy Kurtz MD LAB - PATHOLOGY/CYTOLOGY ORD ERABLES Final Result DERMATOPATHOLOGY LABORATORY [facility] - Department of Dermatology [address] [facility], 5th [place] [address], [facility] [phone] documented in this encounter Visit Diagnoses Not on filedocumented in this encounter Care Teams Quality Management Nurse Relationship Specialty Start Date End Date Carolyne James PA-C [address] [place] [phone] PCP - General Physician Candy Packer 07/12/23 documented as of this encounter
--- OUTSIDE RECORDS SUMMARY | 2025-09-18 18:26 | XMS_ITS | Encounter Summary ---
Author Organization [facility] Address [address] [place] [address] Care Team Providers Care Head Worker Name Role Phone Carolyne James PA-C Primary Care Provider +1- [phone] Encounter Details Date Type Department Care Team (Late st Contact Info) Description 02/17/2019 Lab Requisition [facility] Care DermPath Lab [address] 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 Gender Identity Not on file Sexual Orientation Not on file documented as of this encounter Plan of Treatment Not on file documented as of this encounter Procedures Procedure Name Priority Date/Time Associated Diagnosis Comments DERMATOPATHOLOGY Routine 02/16/2019 12:0 0 AM CDT documented in this encounter Results * DERMATOPATHOLOGY (02/16/2019 12:00 AM CDT) Case Report Dermatopathology Report [id number]: [id number] Authorizing Provider: Krissy Kurtz MD Collected: 02/16/2019 12:00 AM Pathologist: Kimmy Dempsey MD Received: 02/17/2019 07:13 AM Specimen: Skin, right shoulder 9 3:03 PM CDT DERMATOPATHOLOGY LABORATORY Final Diagnosis Specimen A. SKIN, right shoulder: JUNCTIONAL MELANOCYTIC PROLIFERATION; NOT PRESENT AT SAMPLED MARGIN (D48.5) DERMAL SCAR (L90.5) INTRADERMAL MELANOCYTIC NEVUS, INCIDENTAL; PRESENT AT MARGIN (D22.61) (see microscopic description and comment) 3:03 PM [facility] DERMATOPATHOLOGY LABORATORY at 1503 CDT Clinical History Bx proven compound melanocytic proliferation. Previous Bx: [id number]. 3:03 PM CDT DERMATOPATHOLOGY LABORATORY Gross Description Specimen A: Received is one formalin filled container labeled with the patient's name and designated right shoulder.The specimen consists of an ellipse measuring [id number] and is oriented with the notch at the 12 o'clock position, not labeled on the requisition. The epidermal surface consists of a centrally located 8x8mm previous biopsy site. The 12 to 6 o'clock margin is inked green. The 6 o'clock to 12 o'clock margin is inked black. The 12 o'clock tip is submitted in cassette 1. The 6 o'clock tip is submitted in cassette 2. The remainder of the ellipse is serially sectioned and submitted in cassettes 3-5. Jar 0. 3:03 PM T DERMATOPATHOLOGY LABORATORY Microscopic Description Specimen A. SKIN, right shoulder: Sections show a junctional melanocytic proliferation. There is a lentiginous proliferation of melanocytes between irregular nests. Scattered melanocytes show evidence of upward migration within the epidermis. The melanocytes are large and have a reshma cytoplasm. This lesion is not present at the sampled margin of the specimen. Adjacent to the melanocytic proliferation, there are fibroblasts and collagen bundles oriented parallel to the skin surface with elongated blood vessels, some of which are oriented perpendicular to the skin surface. There is also an incidental intradermal nevus within block 3, which is characterized by nests of cytologically bland melanocytes within the dermis that mature with depth. The intradermal nevus is present at the 12 to 6 o'clock (green inked) margin. COMMENT: As there is residual melanocytic proliferation within the specimen, the prior biopsy may be reviewed in conjunction in consultation at the request of the treating clinician. 3:03 PM [facility] DERMATOPATHOLOGY LABORATORY Disclaimer An external and internal positive and negative controls are appropriate for the histochemical, immunohistochemical and immunofluorescence stain(s) in this case (if any), except where stated explicitly. The performance characteristics of the stain(s) cited in this report were developed and its performance characteristic determined by the Dermatopathology Laboratory at [facility], directed by Dr. Nola Dudley. These tests need not be, and therefore are not, approved by the [place] Food and Drug Administration. The tests are used for clinical purposes. Billing Codes Specimen Charges Stain Charges 25423 1 9 3:03 PM CDT DERMATOPATHOLOGY LABORATORY Embedded Images 9 3:03 PM CDT DERMATOPATHOLOGY LABORATORY Pathology/Cytolog y TISSUE SPECIMEN FROM SKIN / Unknown 02/16/2019 02/17/2019 7:13 AM CDT Krissy Kurtz MD LAB - PATHOLOGY/CYTOLOGY ORD ERABLES Final Result DERMATOPATHOLOGY LABORATORY [facility] - Department of Dermatology [address] [place] [address] 5th Floor Lab [address] [phone] documented in this encounter Visit Diagnoses Not on filedocumented in this encounter Care Teams Head Worker Relationship Specialty Start Date End Date Carolyne James PA-C [address] [place] [phone] PCP - General Physician Director Business Systems 07/12/23 documented as of this encounter
--- OUTSIDE RECORDS SUMMARY | 2025-09-18 18:26 | XMS_ITS | Encounter Summary ---
Author Organization [facility] Address [address] [place] [address] Care Team Providers Care Disc Jockey Name Role Phone Carolyne James PA-C Primary Care Provider +1- [phone] Encounter Details Date Type Department Care Team (Late st Contact Info) Description 10/05/2023 Lab Requisition [facility] - DermPath Lab [address] [facility], [place] [phone] Krissy Kurtz MD [address] [facility] 3 [place] [address] Social History Tobacco Use Types Packs/Day Years Used Date Smoking Tobacco: Never Assessed Comments No Sex and Gender Information Value Date Recorded Sex Assigned at Not on file 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 Gender Identity Not on file Sexual Orientation Not on file documented as of this encounter Plan of Treatment Not on file documented as of this encounter Procedures Procedure Name Priority Date/Time Associated Diagnosis Comments DERMATOPATHOLOGY Routine 10/05/2023 9:09 AM SYRUP MIXER documented in this encounter Results * DERMATOPATHOLOGY (10/05/2023 9:09 AM SYRUP MIXER) Case Report Dermatopathology Report Case: [id number] Authorizing Provider: Krissy Kurtz MD Collected: 10/05/2023 09:09 AM Ordering Location: [facility] DermPath Lab Received: 10/06/2023 12:08 PM Pathologist: Temitope Ventura MD Specimen: Skin, left arm 1:33 PM [facility] DERMATOPATHOLOGY LABORATORY Final Diagnosis Specimen A. SKIN, left arm: SEBORRHEIC KERATOSIS, MACULAR (L82.1) 3 1:33 PM [facility] DERMATOPATHOLOGY LABORATORY at 1333 SYRUP MIXER Clinical History Nevus, MM 3 1:33 PM [facility] DERMATOPATHOLOGY LABORATORY Gross Description Specimen A: Received is one formalin filled container labeled with the patient's name and designated left arm. The specimen consists of a shave biopsy measuring 9x6x1 mm. Jar 0. 3 1:33 PM [facility] DERMATOPATHOLOGY LABORATORY Microscopic Description Specimen A. SKIN, left arm: Sections show a relatively broad, flat proliferation of small keratinocytes. The surface is gently papillated, and there is increased basilar pigmentation. 3 1:33 PM [facility] DERMATOPATHOLOGY LABORATORY Disclaimer An external and internal positive and negative controls are appropriate for the histochemical, immunohistochemical and immunofluorescence stain(s) in this case (if any), except where stated explicitly. The performance characteristics of the stain(s) cited in this report were developed and its performance characteristic determined by the Dermatopathology Laboratory at [facility], directed by Dr. Nola Dudley. These tests need not be, and therefore are not, approved by the [place] Food and Drug Administration. The tests are used for clinical purposes. Billing Codes Specimen Charges Stain Charges 94234 1 3 1:33 PM [facility] DERMATOPATHOLOGY LABORATORY Embedded Images 3 1:33 PM [facility] DERMATOPATHOLOGY LABORATORY Pathology/Cytolo gy TISSUE SPECIMEN FROM SKIN / Unknown 10/05/2023 9:09 AM SYRUP MIXER 10/06/2023 12:08 PM [facility] us Krissy Kurtz MD LAB - PATHOLOGY/CYTOLOGY ORD ERABLES Final Result DERMATOPATHOLOGY LABORATORY [facility] - Department of Dermatology [facility] Medicine [address] [place] [address], [address] [place] [address], [facility] [phone] documented in this encounter Visit Diagnoses Not on filedocumented in this encounter Care Teams Disc Jockey Relationship Specialty Start Date End Date Carolyne James PA-C [address] [place] [phone] PCP - General Physician Fitness Centre Manager 07/12/23 documented as of this encounter
--- OUTSIDE RECORDS SUMMARY | 2025-09-18 18:26 | XMS_ITS | Encounter Summary ---
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 us Historical Provider Final Res ult documented in this encounter Visit Diagnoses Not on filedocumented in this encounter Care Teams Inseam Trimming Machine Operator Relationship Specialty Start Date End Date Dg Helton MD [address] [place] [phone] PCP - General Family Medicine 02/14/19 documented as of this encounter
--- OUTSIDE RECORDS SUMMARY | 2025-09-18 18:26 | XMS_ITS | Encounter Summary ---
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
--- OUTSIDE RECORDS SUMMARY | 2025-09-18 18:26 | XMS_ITS | Encounter Summary ---
Author Organization [facility] Address [address] [place] [address] Care Team Providers Care Garment Steamer Name Role Phone Carolyne James PA-C Primary Care Provider +1- [phone] Encounter Details Date Type Department Care Team (Late st Contact Info) Description 05/23/2019 Lab Requisition [facility] Care DermPath Lab [address] [facility] [place] [id number] Krissy Kurtz MD [address] [facility] 3 [place] [address] Social History Tobacco Use Types Packs/Day Years Used Date Smoking Tobacco: Never Assessed Comments Unknown Sex and Gender Information Value Date Recorded Sex Assigned at Not on file Legal Sex Female 6:49 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 Gender Identity Not on file Sexual Orientation Not on file documented as of this encounter Plan of Treatment Not on file documented as of this encounter Procedures Procedure Name Priority Date/Time Associated Diagnosis Comments DERMATOPATHOLOGY Routine 05/23/2019 12:0 0 AM CDT documented in this encounter Results * DERMATOPATHOLOGY (05/23/2019 12:00 AM CDT) Case Report Dermatopathology Report Case: [id number] Authorizing Provider: Krissy Kurtz MD Collected: 05/23/2019 12:00 AM Pathologist: Yue Dudley MD Received: 05/23/2019 11:46 AM Specimen: Skin, right sole 4:01 PM CDT DERMATOPATHOLOGY LABORATORY Final Diagnosis Specimen A. SKIN, right sole: COMPOUND MELANOCYTIC NEVUS, OF ACRAL SKIN (D22.9) 9 4:01 PM CDT DERMATOPATHOLOGY LABORATORY at 1601 CDT Clinical History R/O nevus vs MM, less likely irregular color. 9 4:01 PM CDT DERMATOPATHOLOGY LABORATORY Gross Description Specimen A: Received is one formalin filled container labeled with the patient's name and designated right sole. The specimen consists of a shave measuring [id number]. Jar 0. 4:01 PM CDT DERMATOPATHOLOGY LABORATORY Microscopic Description Specimen A. SKIN, right sole: Sections show acral type skin with collections of melanocytes at the dermal-epidermal junction that are forming fairly well-defined th ques. Melanocytes are also present in the upper dermis. 4:01 PM CDT DERMATOPATHOLOGY LABORATORY Disclaimer An external and internal positive and negative controls are appropriate for the histochemical, immunohistochemical and immunofluorescence stain(s) in this case (if any), except where stated explicitly. The performance characteristics of the stain(s) cited in this report were developed and its performance characteristic determined by the Dermatopathology Laboratory at [facility], directed by Dr. Nola Dudley. These tests need not be, and therefore are not, approved by the [place] Food and Drug Administration. The tests are used for clinical purposes. Billing Codes Specimen Charges Stain Charges 28046 1 9 4:01 PM CDT DERMATOPATHOLOGY LABORATORY Embedded Images 4:01 PM CDT DERMATOPATHOLOGY LABORATORY Pathology/Cytolog y TISSUE SPECIMEN FROM SKIN / Unknown 05/23/2019 05/23/2019 11:46 AM CDT us Krissy Kurtz MD LAB - PATHOLOGY/CYTOLOGY ORD ERABLES Final Result DERMATOPATHOLOGY LABORATORY [facility] - Department of Dermatology [address] [facility], 5th [place] [address], [facility] [[email or web address]] [phone] documented in this encounter Visit Diagnoses Not on filedocumented in this encounter Care Teams Garment Steamer Relationship Specialty Start Date End Date Carolyne James PA-C [address] [place] [address] PCP - General Physician Kaiawhina Kohanga Reo 07/12/23 documented as of this encounter
--- OUTSIDE RECORDS SUMMARY | 2025-09-18 18:26 | XMS_ITS | Encounter Summary ---
Author Organization [facility] Address [address] [place] [address] Care Team Providers Care Natural Resources Specialist Name Role Phone Carolyne James PA-C Primary Care Provider +1- [phone] Encounter Details Date Type Department Care Team (Late st Contact Info) Description 12/28/2018 Lab Requisition [facility] Care DermPath Lab [address] [facility], [place] [phone] Krissy Kurtz MD [address] [facility] 3 [place] [address] Social History Tobacco Use Types Packs/Day Years Used Date Smoking Tobacco: Never Assessed Comments Unknown Sex and Gender Information Value Date Recorded Sex Assigned at Not on file Legal Sex Female 6:49 PM INPATIENT CARE MANAGER RN Gender Identity Not on file Sexual Orientation Not on file documented as of this encounter Plan of Treatment Not on file documented as of this encounter Procedures Procedure Name Priority Date/Time Associated Diagnosis Comments DERMATOPATH TECHNICAL REPORT Routine 12/27/2018 12:00 AM INPATIENT CARE MANAGER RN documented in this encounter Results * DERMATOPATH TECHNICAL REPORT (12/27/2018 12:00 AM INPATIENT CARE MANAGER RN) Case Report Dermatopathology Report Case: [id number] Authorizing Provider: Krissy Kurtz MD Collected: 12/27/2018 12:00 AM Pathologist: Kimmy Dempsey MD Received: 12/28/2018 06:08 AM Specimen: Skin, right shoulder 3:30 PM INPATIENT CARE MANAGER RN DERMATOPATHOLOGY LABORATORY Addendum 1 At the request of the diagnosing physician, the technical component for MART-1/Melan A was performed by [facility] Dermatopathology Laboratory. 3:30 PM [facility] DERMATOPATHOLOGY LABORATORY Addendum electronically signed by Kimmy Dempsey MD on 12/30/2018 at 1530 INPATIENT CARE MANAGER RN Clinical History Nevus, MM, SK. 2 toned brown papule, bleeding. 3:30 PM [facility] DERMATOPATHOLOGY LABORATORY Gross Description Specimen A: Received is one formalin filled container labeled with the patient's name and designated right shoulder. The specimen consists of a shave measuring [id number]. Jar 0. [facility] Dermatopathology Laboratory performed the technical component only. 3:30 PM [facility] DERMATOPATHOLOGY LABORATORY Embedded Images 3:30 PM [facility] DERMATOPATHOLOGY LABORATORY DISCLAIMER An external and internal positive and negative controls are appropriate for the histochemical, immunohistochemical and immunofluorescence stain(s) in this case (if any), except where stated explicitly. The performance characteristics of the stain(s) cited in this report were developed and its performance characteristic determined by the Dermatopathology Laboratory at [facility], directed by Dr. Nola Dudley. These tests need not be, and therefore are not, approved by the [place] Food and Drug Administration. The tests are used for clinical purposes. 3:30 PM [facility] DERMATOPATHOLOGY LABORATORY at 1420 INPATIENT CARE MANAGER RN Pathology/Cytolog y TISSUE SPECIMEN FROM SKIN / Unknown 12/27/2018 12/28/2018 6:08 AM INPATIENT CARE MANAGER RN us Krissy Kurtz MD LAB - PATHOLOGY/CYTOLOGY ORD ERABLES Edited Result - Final DERMATOPATHOLOGY LABORATORY [facility] - Department of Dermatology [address] [facility], 5th [place] [address], [facility] [phone] documented in this encounter Visit Diagnoses Not on filedocumented in this encounter Care Teams Natural Resources Specialist Relationship Specialty Start Date End Date Carolyne James PA-C [address] [place] [phone] PCP - General Physician Lead Installer 07/12/23 documented as of this encounter
--- OUTSIDE RECORDS SUMMARY | 2025-09-18 18:28 | XMS_ITS | Encounter Summary ---
Author Organization [facility] Address [address] [place] [address] Care Team Providers Care Bottom Precipitator Operator Name Role Phone Carolyne James PA-C Primary Care Provider +1- [phone] Encounter Details Date Type Department Care Team (Late st Contact Info) Description 06/30/2025 Yottaat Message Enc [facility] [address] [place], [facility] Provider LAB RESULTS Social History Tobacco Use Types Packs/Day Years Used Date Smoking Tobacco: Never Passive Smoke Exposure: Never Smokeless Tobacco: Never Alcohol Use Standard Drinks/Week Comments Not Currently 0 (1 standard drink = 0.6 oz pur e alcohol) Very seldom AUDIT-C Answer Date Recorded Frequency of Alcohol Consumption Never 09/25/2018 Average Number of Drinks Not on file 018 Frequency of Binge Drinking Not on file 10/2017 PHQ-2 Answer Date Recorded Patient Health Questionnaire-2 Score 0 11/10/2024 Comments No Sex and Gender Information Value Date Recorded Sex Assigned at Female 07/24/2021 10:01 AM CDT Legal Sex Female 2:51 AM CDT Gender Identity Female 07/24/2021 10:01 AM CDT Sexual Orientation Straight 07/24/2021 10 :01 AM CDT documented as of this encounter Plan of Treatment Upcoming Encounters Date Type Department Care Team (Late st Contact Info) Description 11/02/2025 9:40 AM SHOP HELPER Office Visit [facility] [place] [address] Carolyne James PA-C [address] [place] [address] 12/05/2025 9:45 AM SHOP HELPER Office Visit [facility] [address] [place], [place] [phone] Virgil Baker MD [facility]. [facility] [address] [place], [place] [address] documented as of this encounter Visit Diagnoses Not on filedocumented in this encounter Additional Health Concerns Assessment Noted Time PHQ-9 Depression Total Score: 0 06/04/20 21 8:45 AM CDT documented as of this encounter Care Teams Bottom Precipitator Operator Relationship Specialty Start Date End Date Carolyne James PA-C [address] [place] [address] PCP - General PHYSICIAN CARE PROFESSIONAL 06/07/21 documented as of this encounter
--- OUTSIDE RECORDS SUMMARY | 2025-09-18 18:28 | XMS_ITS | Clinical Summary ---
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 Installer Name Role Phone Virginie Browning PA-C Primary Care Provider [phone] Allergies Active Allergy Reactions Criticality Noted Date Comments Doxycycline Other (see comment) 04/24/2023 Patient states it felt like she had a lump in her neck Penicillins Swelling Low 11/21/2017 Medications loteprednol 0.5 % ophthalmic suspension 0 Active fluticasone propionate (FLONASE) 50 MCG/ACT nasal sprayIndication s:Allergy, subsequent encounter ADMINISTER 1-2 SPRAYS Q NOSTRIL QD 16 g 1 4 Active latanoprost (XALATAN) 0.005 % ophthalmic solution INSTILL 1 DROP BOTH EYES EVERY EVENING 4 Active PREVIDENT 5000 SENSITIVE 1.1-5 % Gel 2 (two) times daily. 4 Active hydrocortisone 2.5 % cream APPLY SMALL AMOUNT TOPICALLY TO THE AFFECTED AREA DAILY 5 Active aspirin EC (ECOTRIN) 81 MG tablet Take 1 tablet (81 mg total) by mouth daily. 5 Active scopolamine (TRANSDERM-SCOP ) 1 MG/3DAYS patchIndication s:Motion sickness, initial encounter Place 1 patch onto the skin every third day. 10 patch 5 Active Active Problems Problem Noted Date Diagnosed Date Vertigo 08/01/2025 Chest pain 06/23/2025 Postmenopause 03/15/2024 Chronic right-sided low back pain without sciati ca 03/15/2024 Elevated LFTs 11/10/2023 Allergy, subsequent encounter 11/10/2023 Hypercholesterolemia 08/04/2023 Vitamin B12 deficiency 06/17/2023 Vitamin D deficiency 06/17/2023 Fatigue, unspecified type 08/08/2021 Bunion, left foot 05/13/2021 Degenerative disc disease, cervical 04/12/2019 Overview (05/13/2021): Last Assessment & Plan: Consider pain management if no significant improvement Cubital tunnel syndrome on right 02/18/2019 Overview (05/13/2021): Last Assessment & Plan: Symptoms are consistent with cubital tunnel however she also has scar over the axillary nerve from previous biopsy. Consider EMG NCV 6 weeks after her surgery. History of atypical skin mole 02/18/2019 Overview (05/13/2021): Last Assessment & Plan: Again, over the axillary nerve. EMG NCV at 6 weeks from surgery. Will obtain MRI cervical spine for further evaluation of the numbness and tingling as well as weakness to the right upper extremity. Lateral epicondylitis of right elbow 02/18/2019 Overview (05/13/2021): Last Assessment & Plan: Repeat steroid injection today. Meloxicam 15 mg once daily. Formal physical therapy with modalities. Follow up in 4-6 weeks. Encounters Date Type Department Care Team Description 09/18/2025 Telephone [facility] [address] [place] [id number] Virginie Browning PA-C Medication Request 08/28/[address] [phone] Virginie Browning PA-C Advice 08/01/2025 9:40 AM CDT Office Visit [address] [phone] Virginie Browning PA-C Radiology Results (Patient present for test results) 08/01/2025 Travel 07/16/2025 Results Follow-Up [address] [phone] Virginie Browning PA-C MRI LUMB SPINE WO CON 07/11/2025 Results Follow-Up [facility] [address] Jeanine Espinosa RN NM EXER NUC STRESS TEST 1DAY 07/07/2025 7:13 AM CDT - 07/07/2025 11:59 PM CDT Hospital Encounter [facility] [address] Griffin Baker MD Discharge Disposition: Home or Self Care (Routine Discharge) 07/07/2025 Travel 07/05/2025 11:30 AM CDT [facility] [address] Griffin Baker MD Chest Pain (New consult) 07/04/2025 2:59 PM CDT - 07/04/2025 11:59 PM CDT Hospital Encounter [place] [address] Virginie Browning PA-C Discharge Disposition: Home or Self Care (Routine Discharge) 07/04/2025 MyChart Message Enc [address] [phone] Virginie Browning PA-C results 07/04/2025 Travel 06/30/2025 3:38 PM CDT - 06/30/2025 11:59 PM CDT Hospital Encounter [facility] [place] [address] Virginie Browning PA-C Discharge Disposition: Home or Self Care (Routine Discharge) 06/30/2025 Travel 06/30/2025 MyChart Message Enc [facility] [address] [place] [address] [facility] Provider LAB RESULTS 06/19/2025 Telephone [facility] [place], [place] [phone] Nereyda Townsend, RMA Consult 06/18/2025 Results Follow-Up [facility] [address] [place] [address] Virginie Browning PA-C CBC W/DIFF AUTOMATED, COMPREHENSIVE METABOLIC PANEL, LIPID PANEL, Additional followed-up results: 5 from Last 3 Months Immunizations Immunization Administration Dates Next Due Tdap (Boostrix) 01/14/2021 Family History Medical History Relation Comments Alzheimers Father Stroke Father Breast Cancer Maternal Aunt 1 Breast Cancer Maternal Aunt 2 Alzheimers Mother Stroke Mother Vision loss Mother Kidney Disease Son Seizures Son Relation Status Comments Father Maternal Aunt 1 Maternal Aunt 2 Maternal Grandfather Maternal Grandmother Mother Paternal Grandfather Paternal Grandmother Son Alive Social History Tobacco Use Types Packs/Day Years Used Date Smoking Tobacco: Never Passive Smoke Exposure: Never Smokeless Tobacco: Never Tobacco Cessation:Counseling Given: No Alcohol Use Standard Drinks/Week Comments Yes 0 [...] Orientation Straight 07/24/2021 10 :01 AM CDT Last Filed Vital Signs Vital Sign Reading Time Taken Comments Blood Pressure 134/76 08/01/2025 9:46 AM CDT Pulse 60 08/01/2025 9:46 AM CDT Temperature 37 C (98.6 F) 08/01/2025 9:46 AM CDT Respiratory Rate 15 08/01/2025 9:46 AM CDT Oxygen Saturation 96% 08/01/2025 9:46 AM CDT Inhaled Oxygen Concentration - - Weight 73.5 kg (162 lb) 08/01/2025 9:46 AM CDT Height 157.5 cm (5' 2) 07/05/2025 11:31 AM CDT Body Mass Index 29.63 07/05/2025 11:31 AM CDT Plan of Treatment Upcoming Encounters Date Type Department Care Team (Late st Contact Info) Description 11/02/2025 9:40 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 [address] [address] Health Maintenance Due Date Last Done Comments ASCVD Statin 1955 Pneumococcal Vaccine: 50+ Years (1 of 2 - PCV) 1973 Zoster Vaccines (1 of 2) 2004 RSV Immunization or 60+ Years (1 - Risk 60-74 years 1-dose series) 2014 Annual Medicare Wellness Visit 2019 COVID-19 Vaccine ( season) 2025 08/23/2021, 08/02/2021 Influenza Adult (#1) 2025 Mammogram Screening 07/04/2027 07/04/2025, 05/02/2024, 03/13/2023, Additional history exists DTaP, Tdap and Td Vaccines (2 - Td or Tdap) 01/14/2031 01/14/2021 Colorectal Cancer Screening Colonoscopy (10 Years) 01/17/2032 01/16/2022, 06/26/2016, 06/26/2011, Additional history exists Hepatitis C Completed 03/10/2024 Dexa Scan (General) Completed 04/07/2024, 01/02/2022, 09/24/2018, Additional history exists PHQ-2 (Physician [place]) Completed 11/10/2024 Hepatitis A Vaccines Aged Out No long er eligible based on patient's age to complete this topic Meningococcal B Vaccine Aged Out No l onger eligible based on patient's age to complete this topic Meningococcal Vaccine Aged Out No arian armando eligible based on patient's age to complete this topic RSV Immunizations Under 20 Months Aged Out No longer eligible based on patient's age to complete this topic Procedures Procedure Name Priority Date/Time Associated Diagnosis Comments NM EXER NUC STRESS TEST 1 DAY W TRACING Routine 07/07/2025 10:18 AM CDT Chest pain Angina of effort CARDIOLOGY STRESS TEST ONLY, EXERCISE Routine 07/07/2025 7:13 AM CDT Chest pain Angina of effort ELECTROCARDIOGRAM (NON MIDMARK ACQUIRED) Routine 07/05/2025 11:40 AM CDT Chest pain MG SCREENING W DOLORES ANNETTE DIGI Routine 07/04/2025 3:23 PM CDT Screening mammogram, encounter for MRI LUMB SPINE WO CON Routine 06/30/2025 4:37 PM CDT Chronic right-sided low back pain without sciatica BONE DENSITY/DEXA Routine 04/07/2024 8:4 2 AM CDT Postmenopause HEPATITIS C ANTIBODY Routine 03/10/2024 2:15 PM CDT Elevated LFTs COLONOSCOPY GENERIC (SCAN ORDER) 01/16/2022 from Last 3 Months or Most Recently Relevant to Health Maintenance Results * NM EXER NUC STRESS TEST 1DAY (07/07/2025 10:18 AM CDT) Anatomical Region Laterality Modality Cardiac Nuclear Medicine 07/07/2025 7:35 AM CDT Narrative 07/09/2025 12:28 PM CDT Myocardial Perfusion Imaging Pat.Name: BERNIE CURTIS LUCIANO Pat.ID: [id number] St.Date: 07/07/2025 Refer.MD: Griffin Baker [id number] Exam Time: 7:35:00 AM Study Type:PHAM NC HT MUSCLE IMAGE SPECT MULTI Height: 62 in Weight: 159 lb BSA: 1.73 m2 Age: 10 1955,69Y Sex: F Sonogrphr: BECKIE Tim Pat. Stat.:Outpatient Reason for Study:Chest pain History / Clinical:Hypertension, Sleep Apnea Procedures: Nuclear Stress Test with Exercise Surgery: Cardiac Catheterization, Echocardiogram, Stress Echo ++++++++++++++++++++++++++++++++++++ SUMMARY: ++++++++++++++++++++++++++++++++++++ Stress conclusion: 1. Clinically negative. 2. Electrocardiographically negative treadmill test for ischemia. Stress EKG showed non specific ECG changes. 3. Adequate exercise capacity. _ 4. Dasilva Treadmill Score is 3.5, which indicates low to moderate risk. 5. Blood pressure response was normal. _ 6. Scintigraphic images to follow. Perfusion conclusion: 1. Good study quality. No motion correction was applied to images. No attenuation is noted. Prone imaging was performed. 2. Normal myocardial perfusion SPECT imaging. 3. Normal wall motion with an ejection fraction of 71%. _ 4. Stress test with myocardial perfusion imaging shows overall low risk for a cardiac event. ++++++++++++++++++++++++++++++++++++ FINDINGS: ++++++++++++++++++++++++++++++++++++ Protocol: The images were processed using the standard SPECT technique. A gated study was performed on the stress images. The gated resting image was processed using the standard SPECT technique. Impression: SPECT images demonstrate normal perfusion of normal intensity. Heart Size: The left ventricle is normal. LV Wall Motion: The LVEF is calculated to be 71%. Gated SPECT images reveal normal wall motion. Transient Ischemic Dilatation: The TID is 1.0. There is no evidence of Transient Ischemic Dilatation. ++++++++++++++++++++++++++++++++++++ STRESS: ++++++++++++++++++++++++++++++++++++ Baseline Vital Signs: ECG: Normal sinus rhythm HR: 58 bmp Rest BP: 142/73 Treadmill Test Protocol: Abebe Duration: 06:07 min:sec Max. Workload (METS): 7.1 Stress Test Results: Max HR: 149 bmp Target HR: 150 bmp % Target: 99 % Max BP: 150/80 Max RPP: [id number] O2 sat: 100 % Symptoms and Complications: Terminated: Shortness of breath Symptoms: Shortness of breath Complications: None Stress ECG Interp: Normal sinus rhythm <Electronic Signature> 07/09/2025 12:28 PM Griffin Baker M.D. Procedure Note Griffin Baker MD - 07/09/2025 Myocardial Perfusion Imaging Pat.Name: BERNIE CURTIS Pat.ID: [id number] .Date: 07/07/2025 Refer.MD: Griffin Baker [id number] Exam Time: 7:35:00 AM Study Type:PHAM NC HT MUSCLE IMAGE SPECT MULTI Height: 62 in Weight: 159 lb BSA: 1.73 m2 Age: 10 1955,69Y Sex: F Sonogrphr: BECKIE Tim Pat. Stat.:Outpatient Reason for Study:Chest pain History / Clinical:Hypertension, Sleep Apnea Procedures: Nuclear Stress Test with Exercise Surgery: Cardiac Catheterization, Echocardiogram, Stress Echo ++++++++++++++++++++++++++++++++++++ SUMMARY: ++++++++++++++++++++++++++++++++++++ Stress conclusion: 1. Clinically negative. 2. Electrocardiographically negative treadmill test for ischemia. Stress EKG showed non specific ECG changes. 3. Adequate exercise capacity. _ 4. Dasilva Treadmill Score is 3.5, which indicates low to moderate risk. 5. Blood pressure response was normal. _ 6. Scintigraphic images to follow. Perfusion conclusion: 1. Good study quality. No motion correction was applied to images. No attenuation is noted. Prone imaging was performed. 2. Normal myocardial perfusion SPECT imaging. 3. Normal wall motion with an ejection fraction of 71%. _ 4. Stress test with myocardial perfusion imaging shows overall low risk for a cardiac event. ++++++++++++++++++++++++++++++++++++ FINDINGS: ++++++++++++++++++++++++++++++++++++ Protocol: The images were processed using the standard SPECT technique. A gated study was performed on the stress images. The gated resting image was processed using the standard SPECT technique. Impression: SPECT images demonstrate normal perfusion of normal intensity. Heart Size: The left ventricle is normal. LV Wall Motion: The LVEF is calculated to be 71%. Gated SPECT images reveal normal wall motion. Transient Ischemic Dilatation: The TID is 1.0. There is no evidence of Transient Ischemic Dilatation. ++++++++++++++++++++++++++++++++++++ STRESS: ++++++++++++++++++++++++++++++++++++ Baseline Vital Signs: ECG: Normal sinus rhythm HR: 58 bmp Rest BP: 142/73 Treadmill Test Protocol: Abebe Duration: 06:07 min:sec Max. Workload (METS): 7.1 Stress Test Results: Max HR: 149 bmp Target HR: 150 bmp % Target: 99 % Max BP: 150/80 Max RPP: [id number] O2 sat: 100 % Symptoms and Complications: Terminated: Shortness of breath Symptoms: Shortness of breath Complications: None Stress ECG Interp: Normal sinus rhythm <Electronic Signature> 07/09/2025 12:28 PM Griffin Baker M.D. 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: : 1955 Requested By: GRIFFIN BAKER Order Number: [id number] Reading MD: Miguel A Thorne Measurements Intervals [place] Rate: 55 P: 69 [place]: 134 QRS: 66 QRSD: 87 T: 64 QT: 436 QTc: 420 Interpretive Statements SINUS BRADYCARDIA Procedure Note Miguel A Thorne MD - 07/11/2025 [facility] Test Date: 2025-07-05 Pat Name: BERNIE [facility] Department: 112 Room: Gender: Female Equine Pharmacology Technician: : 1955 Requested By: GRIFFIN BAKER Order Number: [id number] Reading : Miguel A Thorne Measurements Intervals [place] Rate: 55 P: 69 [place]: 134 QRS: 66 QRSD: 87 T: 64 QT: 436 QTc: 420 Interpretive Statements SINUS BRADYCARDIA us Griffin Baker MD PROCEDURES-ORDERABLE NO CHARGE Final Result DON NELSON * MG SCREENING W DOLORES ANNETTE DIGI (07/04/2025 3:23 PM CDT) Anatomical Region Laterality Modality Breast Bilateral Mammography 07/04/2025 3:34 PM CDT Impressions 07/04/2025 3:39 PM CDT IMPRESSION: No significant interval change. No mammographic evidence of malignancy. RECOMMENDATION: Routine ScreeningBilateral OVERALL IMAGING ASSESSMENT: ACR BI-RADS 2 - BENIGN FINDING(S). Ordered By: VIRGINIE BROWNING Interpreted By: Calvin Perrin, 07/04/2025 3:34 PM Narrative 07/04/2025 3:39 PM CDT [facility] [place] [address] EXAMINATION: MG SCREENING W DOLORES ANNETTE DIGI INDICATIONS: Screening TECHNIQUE: Digital full field CC and MLO screening mammography bilaterally to include 3-D Tomosynthesis technique. This study was read with the assistance of a computer-aided detection system. HISTORY: No reported breast complaint. Family history of breast cancer. No documented personal or first degree family history of breast cancer. No documented prior breast procedure. COMPARISON: Multiple prior examinations available for comparison dating back to 10/30/2007, the most recent of 05/02/2024, 03/13/2023, and 01/02/2022. TISSUE DENSITY: The breasts are heterogeneously dense, which may obscure small masses. FINDINGS: Few scattered typically benign round and rodlike calcifications bilaterally. No suspicious microcalcification or mass. Stable fibroglandular asymmetries bilaterally. No developing asymmetry or architectural distortion. No axillary adenopathy. us Virginie Browning PA-C MAMMO Final Resu lt * MRI LUMB SPINE WO CON (06/30/2025 4:37 PM CDT) Anatomical Region Laterality Modality Spine Magnetic Resonan ce 07/12/2025 9:30 PM CDT Impressions 07/12/2025 9:34 PM CDT IMPRESSION: 1. Multilevel degenerative changes in the lumbar spine contributing to varying degrees of spinal canal and foraminal stenosis, as detailed above. 2. Likely reactive/degenerative edema along the L2-L3 endplates and lower lumbar facets. Referred By: VIRGINIE BROWNING Interpreted By: Finesse Villar MD, 07/12/2025 9:30 PM Narrative 07/12/2025 9:[address] PM [address]T [address] [address] INDICATION: Chronic right-sided back pain. Pain radiates to right hip. EXAMINATION: MRI lumbar spine without contrast. TECHNIQUE: Multiplanar and multisequence MRI images of the lumbar spine were obtained without contrast. COMPARISON: None FINDINGS: There are 5 lumbar type vertebral bodies designated as L1 through L5; using this numbering system, the conus medullaris terminates at the lower L1 level and appears unremarkable Minimal retrolisthesis of L2 on L3. Otherwise the lumbar vertebral alignment, vertebral body heights, and facet alignment are maintained. Multilevel degenerative changes are evident in the lumbar spine with disc degeneration, endplate osteophytes, ligamentum flavum thickening, and facet hypertrophy noted. Multilevel disc desiccation. Likely reactive/degenerative edema noted along the L2-L3 endplates and lower lumbar facets. Imaged portions of the soft tissues reveal no acute findings. Left renal cyst. T11-T12: Small right paracentral protrusion. Facet hypertrophy. No canal or foraminal narrowing. T12-L1: Facet hypertrophy. No canal or foraminal narrowing. L1-L2: Mild disc bulge. Mild facet hypertrophy. No canal or foraminal narrowing. L2-L3: Slight retrolisthesis disc bulge with extension into the foramina. Facet hypertrophy. Flattening of the ventral thecal sac. Minimal if any canal stenosis. Minimal foraminal narrowing. L3-L4: Disc bulge with extension into the foramina. Ligamentous and facet hypertrophy. Marginal endplate osteophytes. Mild canal stenosis. Mild to moderate left and mild right foraminal narrowing. L4-L5: Disc bulge with extension into the foramina. Marginal endplate osteophytes. Ligamentous and facet hypertrophy. Bilateral lateral recess and mild to moderate canal stenosis. Moderate foraminal narrowing. L5-S1: Mild disc bulge. Ligamentous and facet hypertrophy. Mild canal stenosis. Mild foraminal narrowing. Procedure Note Finesse Villar MD - 07/12/[address] [address] INDICATION: Chronic right-sided back pain. Pain radiates to right hip. EXAMINATION: MRI lumbar spine without contrast. TECHNIQUE: Multiplanar and multisequence MRI images of the lumbar spine were obtainedwithout contrast. COMPARISON: None FINDINGS: There are 5 lumbar type vertebral bodies designated as L1 through L5;using this numbering system, the conus medullaris terminates at the lowerL1 level and appears unremarkable Minimal retrolisthesis of L2 on L3. Otherwise the lumbar vertebralalignment, vertebral body heights, and facet alignment are maintained.Multilevel degenerative changes are evident in the lumbar spine with discdegeneration, endplate osteophytes, ligamentum flavum thickening, andfacet hypertrophy noted. Multilevel disc desiccation. Likelyreactive/degenerative edema noted along the L2-L3 endplates and lowerlumbar facets. Imaged portions of the soft tissues reveal no acute findings. Left renalcyst. T11-T12: Small right paracentral protrusion. Facet hypertrophy. No canalor foraminal narrowing. T12-L1: Facet hypertrophy. No canal or foraminal narrowing. L1-L2: Mild disc bulge. Mild facet hypertrophy. No canal or foraminalnarrowing. L2-L3: Slight retrolisthesis disc bulge with extension into the foramina.Facet hypertrophy. Flattening of the ventral thecal sac. Minimal if anycanal stenosis. Minimal foraminal narrowing. L3-L4: Disc bulge with extension into the foramina. Ligamentous and facethypertrophy. Marginal endplate osteophytes. Mild canal stenosis. Mild tomoderate left and mild right foraminal narrowing. L4-L5: Disc bulge with extension into the foramina. Marginal endplateosteophytes. Ligamentous and facet hypertrophy. Bilateral lateral recessand mild to moderate canal stenosis. Moderate foraminal narrowing. L5-S1: Mild disc bulge. Ligamentous and facet hypertrophy. Mild canalstenosis. Mild foraminal narrowing. IMPRESSION: 1. Multilevel degenerative changes in the lumbar spine contributing tovarying degrees of spinal canal and foraminal stenosis, as detailedabove. 2. Likely reactive/degenerative edema along the L2-L3 endplates and lowerlumbar facets. Referred By: VIRGINIE BROWNING Interpreted By: Finesse Villar MD, 07/12/2025 9:30 PM us Virginie Browning PA-[place] MRI Final Resu lt * BONE DENSITY/DEXA (04/07/2024 8:42 AM CDT) Anatomical Region Laterality Modality Bone Mammography 04/07/2024 8:54 AM CDT Impressions 04/07/2024 8:56 AM CDT IMPRESSION: WHO Classification: Osteopenia. RECOMMENDATIONS: All patients should ensure an adequate intake of dietary calcium and vitamin D. The NOF recommend adults under the age of 50 need 1000 mg of calcium and 400-800 IU of vitamin D daily. Effective therapy for the prevention and treatment of osteoporosis include bisphosphonates. FOLLOW-UP: People with diagnosed cases of osteoporosis or at high risk for fracture should have regular bone mineral density test. For patients eligible for Medicare, routine testing is allowed once every 2 years. Testing frequency can be increased to one year for patients who have rapidly progressing disease, those who are receiving or discontinuing medical therapy to restore bone mass, or have additional risk factors. Ordered By: VIRGINIE BROWNING Interpreted By: Calvin Perrin, 04/07/2024 8:54 AM Narrative 04/07/2024 8:56 AM CDT EXAMINATION: BONE DENSITY/DEXA INDICATIONS: Asymptomatic menopausal state COMPARISON: 01/02/2022 TECHNIQUE: DEXA bone mineral density evaluation was performed in the AP projection over the lumbar spine and both hips utilizing standard imaging techniques. FINDINGS: The BMD measured at the AP spine L1-L4 is 1.004 g/cm? with a T-score of -0.4 (previously 1.023 g/cm? with a T-score of -0.2). The BMD measured at the left femoral neck is 0.641 g/cm? with a T-score of -1.9 (previously 0.621 g/cm? with a T-score of -2.1). The BMD measured at the left hip is 0.869 g/cm? with a T-score of -0.6 (previously 0.901 g/cm? with a T-score of -0.3). The BMD measured at the right femoral neck is 0.601 g/cm? with a T-score of -2.2 (previously 0.607 g/cm? with a T-score of -2.2). The BMD measured at the right hip is 0.842 g/cm? with a T-score of -0.8 (previously 0.851 g/cm? with a T-score of -0.7). FRAX 10-year fracture risk: Major Osteoporotic Fracture: 19% Hip Fracture: 4.8% Procedure Note Calvin Perrin MD - 04/07/2024 EXAMINATION: BONE DENSITY/DEXA INDICATIONS: Asymptomatic menopausal state COMPARISON: 01/02/2022 TECHNIQUE: DEXA bone mineral density evaluation was performed in the APprojection over the lumbar spine and both hips utilizing standard imagingtechniques. FINDINGS: The BMD measured at the AP spine L1-L4 is 1.004 g/cm? with a T-score of-0.4 (previously 1.023 g/cm? with a T-score of -0.2). The BMD measured at the left femoral neck is 0.641 g/cm? with a T-score of-1.9 (previously 0.621 g/cm? with a T-score of -2.1). The BMD measured at the left hip is 0.869 g/cm? with a T-score of - 0.6(previously 0.901 g/cm? with a T-score of -0.3). The BMD measured at the right femoral neck is 0.601 g/cm? with a T-scoreof -2.2 (previously 0.607 g/cm? with a T-score of -2.2). The BMD measured at the right hip is 0.842 g/cm? with a T-score of - 0.8(previously 0.851 g/cm? with a T-score of -0.7). FRAX 10-year fracture risk: Major Osteoporotic Fracture: 19% Hip Fracture: 4.8% IMPRESSION: WHO Classification: Osteopenia. RECOMMENDATIONS: All patients should ensure an adequate intake of dietary calcium andvitamin D. The NOF recommend adults under the age of 50 need 1000 mg ofcalcium and 400-800 IU of vitamin D daily. Effective therapy for theprevention and treatment of osteoporosis include bisphosphonates. FOLLOW-UP: People with diagnosed cases of osteoporosis or at high risk for fractureshould have regular bone mineral density test. For patients eligible forMedicare, routine testing is allowed once every 2 years. Testing frequencycan be increased to one year for patients who have rapidly progressingdisease, those who are receiving or discontinuing medical therapy torestore bone mass, or have additional risk factors. Ordered By: VIRGINIE BROWNING Interpreted By: Calvin Perrin, 04/07/2024 8:54 AM us Virginie Browning PA-C DEXA Final Resu lt * HEPATITIS C ANTIBODY ([facility] ONLY) (03/10/2024 2:15 PM CDT) [facility] HEPATITIS C AB Non Reactive Non Reacti [facility] 1 Comment: HCV antibody alone does not differentiate between previously resolved infection and active infection. Equivocal and Reactive HCV antibody results should be followed up with an HCV RNA test to support the diagnosis of active HCV infection. 03/10/2024 2:15 PM CDT 03/10/2024 [facility] - 03/12/2024 6:11 AM CDT Performed at: [address] [place] [address] [id number] Cable Tower Operator: See Ahmadi PhD, Phone: [phone] us Virginie Browning PA-C LABORATORY Final Resu lt [facility] [address] [place] [address] [facility] 1 * COLONOSCOPY GENERIC (01/16/2022) 01/16/2022 Narrative 01/16/2022 Ordered by an unspecified provider. us Documents Scanned SCANNING Final Result from Last 3 Months or Most Recently Relevant to Health Maintenance Insurance MEDICARE [employer] [place] [id number] Care Teams Electric Stop Installer Relationship Specialty Start Date End Date Virginie Browning PA-C [address] [place] [phone] PCP - General PHYSICIAN PROJECT STRUCTURAL ENGINEER 06/07/21
--- OUTSIDE RECORDS SUMMARY | 2025-09-18 18:28 | XMS_ITS | Encounter Summary ---
Author Organization [facility] Address [address] [place] [address] Care Team Providers Care Senior Logistics Manager Name Role Phone Carolyne James PA-C Primary Care Provider [phone]- [phone] Reason for Visit * Reason Onset Date Comments Medication Request 09/18/2025 Encounter Details Date Type Department Care Team (Late st Contact Info) Description 09/18/2025 Telephone [facility] Family Medicine - [place] [phone] Carolyne James PA-C [address] [place] [phone] Medication Request Social History Tobacco Use Types Packs/Day Years [...] AM CDT documented as of this encounter Progress Notes * Pam Mistry MA - 09/18/2025 2:18 PM CST No answer but left detail message tell patient she needs to go to UC or ER. TAIN BRUSH ASSEMBLER * Carloyne James PA-C - 09/18/2025 12:57 PM CST She needs to go to UC or ER for them to look at her ear TAIN BRUSH ASSEMBLER * Henny Guajardo - 09/18/2025 10:20 AM CST Pt called, she was trying to book an appt either today with anyone but neither provider has anything at this time until next week. She said that she is needing a zpak. She has been sick for over a week now, she has a cough and runny nose. She thinks she also burst her RT ear drum by blowing her nose too hard. She said that everything in her rt ear sound amplified and she hears swishy sounds [id number] [facility] [address] [[id number]] TAIN BRUSH ASSEMBLER documented in this encounter Plan of Treatment Upcoming Encounters Date Type Department Care Team (Late st Contact Info) Description 11/02/2025 9:40 AM FOUNTAIN BRUSH ASSEMBLER Office Visit [facility] Family Medicine - [place] [address] [place] [phone] Carolyne James PA-C [address] [place] [phone] 12/05/2025 9:45 AM FOUNTAIN BRUSH ASSEMBLER Office Visit [facility], [address] [address] Virgil Baker MD [address] [facility]. [place] [address] [place] [address] documented as of this encounter Visit Diagnoses Not on filedocumented in this encounter Additional Health Concerns Assessment Noted Time PHQ-9 Depression Total Score: 0 06/04/20 8:45 AM CDT documented as of this encounter Care Teams Senior Logistics Manager Relationship Specialty Start Date End Date Carolyne James PA-C [address] [place] [phone] PCP - General PHYSICIAN PHOTOGRAMMETRIC COMPILATION SPECIALIST 06/07/21 documented as of this encounter
--- OUTSIDE RECORDS SUMMARY | 2025-09-18 18:28 | XMS_ITS | Encounter Summary ---
Author Organization [facility] Address [address] [place] [address] Care Team Providers Care Top Cager Name Role Phone Carolyne James PA-C Primary Care Provider +1- [phone] Encounter Details Date Type Department Care Team (Late st Contact Info) Description 07/04/2025 Tissue Regeneration Systemst Message Enc [facility] Family Medicine [place] [phone] Carolyne James PA-C [address] [place] [phone] results Social History Tobacco Use Types Packs/Day Years [...] st Contact Info) Description 11/02/2025 9:40 AM PROFESSOR OF PSYCHIATRY Office Visit [facility] Family Medicine - [place] [address] [place] [phone] Carolyne James PA-C [address] [place] [phone] 12/05/2025 9:45 AM PROFESSOR OF PSYCHIATRY Office Visit [facility], [address] [address] Virgil Baker MD Three [facility]. [address] [address] documented as of this encounter Visit Diagnoses Not on filedocumented in this encounter Additional Health Concerns Assessment Noted Time PHQ-9 Depression Total Score: 0 06/04/20 8:45 AM CDT documented as of this encounter Care Teams Top Cager Relationship Specialty Start Date End Date Carolyne James PA-C [address] [place] [phone] PCP - General PHYSICIAN STRUCTURAL ARCHITECT 06/07/21 documented as of this encounter
== END 2025-09-18 17:23 | disposition home or self-care (01) ==
PROVIDERS: Emergency Provider Nurse Practitioner; PCP Internal Medicine
DX: H66.91 Otitis media, unspecified, right ear (principal); J06.9 Acute upper respiratory infection, unspecified
CPT/HCPCS: 99213; G0463